=== PATIENT | male | born 1960 | race Caucasian/White ===

== ENCOUNTER → 2018-08-22 | Outpatient (CLI) | payer BC ==
--- NOTE | 2018-08-22 08:39 | US ---
EXAMINATION TYPE: US prostate transrectal DATE OF EXAM: 08/22/2018 COMPARISON: NONE CLINICAL HISTORY: R97.20 Elevated PSA. This examination was performed using the transrectal probe. EXAM MEASUREMENTS: Gland Size: 5.3 x 4. x 5.3 cm Volume: 60.7 ml Predicted PSA: 7.3 Actual PSA (if available):2.7 diffusely heterogenous gland with no definitive lesion identified. ? prostatitis vs lesion IMPRESSION: 1. Diffusely heterogenous gland may be related to prostatitis. Underlying neoplasm not excluded. Cons ider short-term follow-up and serial PSA and/or biopsy. Predicted PSA = volume x 0.12 ng/ml Calculated Volume = 0.5236 x L x W x H
== END | disposition home or self-care (01) ==
LOC: RADUSMAIN 07:39
PROVIDERS: ATTEND Family Medicine
DX: R93.89 Abnormal findings on diagnostic imaging of other specified body structures (principal); R97.20 Elevated prostate specific antigen [PSA]
CPT/HCPCS: 76872

== ENCOUNTER → 2019-11-01 | Outpatient (CLI) | payer BC ==
[2019-11-01 16:27] VITALS: BP 165/91; PULSE 75; RESP 16; TEMP 98.2; BMI 39.3
--- NOTE | 2019-11-01 16:46 | P.HPBAR ---
Bariatric H&P - History & Physicial H&P Date: 11/01/19 History & Physicial: Visit/CC: Initial Visit Patient initial contact: Initial weight: 109.769 kg Initial weight in pounds: 242.00 Height: 5 ft 5.75 in Initial BMI: 39.3 Last weight: Current weight: 109.769 kg Current weight in pounds: 242.00 Current BMI: 39.3 [place] body weight (based on NIH guidelines): 63.73 kg Excess body weight loss: 0.0% The patient is a 59 year-old M who presents for Bariatric Assessment. First visit. He is looking into the gastric bypass. Highest weight is 251 pounds. He has done medical supervised. Has brother had duodenal switch and had lost weight and his . He reports mother with severe obesity. His grandfather on mother side with obesity. He has dieted with all with very little success and cannot resist food. He reports eating until he is stuffed. He has depression. [facility]. All risks Past Medical History Past Medical History: Hyperlipidemia History of Any Multi-Drug Resistant Organisms: None Reported Year Discovered:: left hand/finger MDRO Source:: 2014 Past Surgical History: Appendectomy, Hernia Repair Past Psychological History: Depression Smoking Status: Former smoker Past Alcohol Use History: None Reported Past Drug Use History: None Reported Surgical - Exam Vital Signs Temp Pulse Resp BP 98.2 F 75 16 165/91 11/01/19 16:21 11/01/19 16:21 11/01/19 16:21 11/01/19 16:21 Bariatric Checklist Checklist: Plan: Checklist: EGD: 1. Hiatal hernia: 2. H. Pylori: HgbA1c: Vitamin D: Smoking: Former smoker Primary care physician referral: Psychiatry clearance: Cardiology clearance: Sleep study: Diet journal: VTE risk score: VTE risk level: Rehab needs at discharge:
== END | disposition home or self-care (01) ==
LOC: BARWHC3 15:28
PROVIDERS: ATTEND Surgery Plastic and Reconstructive Surgery
DX: E66.9 Obesity, unspecified (principal); F32.9 Major depressive disorder, single episode, unspecified; Z68.39 Body mass index [BMI] 39.0-39.9, adult
CPT/HCPCS: 99201

== ENCOUNTER 2020-02-21 07:28 | Day surgery (SDC) | payer BC ==
[2020-01-25 14:24] VITALS: BMI 37.4
[~2020-02-21 07:28] MED LIST: LACTATED RINGERS 1,000 ML IV SCH; LIDOCAINE 1% (10MG/ML) FOR IV START INTRADERMA PRN
[2020-02-21 07:44] VITALS: TEMP 97.4
[2020-02-21] MEDS ORDERED: PROPOFOL 10 MG/ML 20 ML VIAL IV ONE (08:02)
--- NOTE | 2020-02-21 08:16 | P.GSHP ---
History of Present Illness H&P Date: 02/21/20 CHIEF COMPLAINT: GERD HISTORY OF PRESENT ILLNESS: The patient is a 59 year-old male who presents reports gastroesophageal reflux disease. Upper endoscopy was offered for further evaluation and management. PAST MEDICAL HISTORY: Please see list. PAST SURGICAL HISTORY: Please see list. MEDICATIONS: Please see list. ALLERGIES: Please see list. SOCIAL HISTORY: No illicit drug use FAMILY HISTORY: No reports of Crohn disease or ulcerative colitis. REVIEW OF ORGAN SYSTEMS: CONSTITUTIONAL: No reports of fevers or chills. GI: Denies any blood in stools or constipation. PHYSICAL EXAM: VITAL SIGNS: Stable GENERAL: Well-developed and pleasant in no acute distress. HEENT: No scleral icterus. Extraocular movements grossly intact. Moist buccal mucosa. NECK: Supple without lymphadenopathy. CHEST: Unlabored respirations. Equal bilateral excursions. CARDIOVASCULAR: Regular rate and rhythm. Distal 2+ pulses. ABDOMEN: Soft, nondistended. MUSCULOSKELETAL: No clubbing, cyanosis, or edema. ASSESSMENT: 1. Gastroesophageal reflux disease PLAN: 1. Recommend proceeding with an upper endoscopy Past Medical History Past Medical History: Hyperlipidemia, Prostate Disorder Additional Past Medical History / Comment(s): pt states takes saxenda to suppress appetite History of Any Multi-Drug Resistant Organisms: None Reported Date of last positivie culture/infection: left hand/finger MDRO Source:: 2014 Past Surgical History: Appendectomy, Hernia Repair Past Anesthesia/Blood Transfusion Reactions: No Reported Reaction Smoking Status: Never smoker Medications and Allergies Home Medications Medication Instructions Recorded Confirmed Type Atorvastatin [Lipitor] 80 mg PO HS 12/22/14 02/21/20 History Venlafaxine HCl [Effexor] 37.5 mg PO QAM 12/22/14 02/21/20 History Cholecalciferol (Vitamin D3) 10,000 unit PO DAILY 11/02/19 02/21/20 History [Vitamin D3] Multivit-Min/FA/Lycopen/Lutein 1 tab PO DAILY 11/02/19 02/19/20 History [Centrum Silver Men Tablet] buPROPion HCL [Wellbutrin SR] 150 mg PO QAM 11/02/19 02/21/20 History Glucosamine Sulfate 500 mg PO DAILY 01/25/20 02/21/20 History Ibuprofen [Motrin] 600 mg PO Q8HR PRN 01/25/20 02/21/20 History Liraglutide [Saxenda] 1.8 ml SQ DAILY 01/25/20 02/19/20 History Tamsulosin [Flomax] 0.4 mg PO QAM 02/19/20 02/21/20 History Allergies Allergy/AdvReac Type Severity Reaction Status Date / Time No Known Allergies Allergy Verified 02/21/20 07:44 Surgical - Exam Vital Signs Temp Pulse Resp BP Pulse Ox 97.4 F L 70 16 145/90 98 02/21/20 07:42 02/21/20 07:42 02/21/20 07:42 02/21/20 07:42 02/21/20 07:42
--- NOTE | 2020-02-21 08:22 | P.PCN ---
Date of Procedure: 02/21/20 Description of Procedure: PREOPERATIVE DIAGNOSIS: Gastroesophageal reflux disease. Morbid obesity. POSTOPERATIVE DIAGNOSIS: Morbid obesity. Gastritis. Duodenitis Gastroesophageal reflux disease. Diaphragmatic hiatal hernia OPERATION: Esophagogastroduodenoscopy with biopsies along antrum. SURGEON: Michell Rolle MD ANESTHESIA: MAC. INDICATIONS: The patient is a 59-year-old male who presents with a history of reflux disease. Benefits and risks of the procedure were described. Informed consent was obtained. DESCRIPTION: The patient was brought into the endoscopy suite and laid in the left lateral decubitus position. An Olympus gastroscope was passed along the posterior oropharynx down to the distal esophagus where the squamocolumnar junction was encountered at 39 cm from the incisors. The stomach was entered and no bile reflux was found. Additional findings are listed below. Biopsies with cold forceps were obtained of the antrum. The first through third portion of the duodenum was examined and remarkable for duodenitis. Retroflexion of the scope confirmed Hill grade 2 lower esophageal valve. The squamocolumnar junction demonstrated LA grade B erosive esophagitis. The stomach was desufflated. The patient tolerated the procedure well. FINDINGS: Squamocolumnar junction 39 cm from the incisors. Diaphragmatic hiatus at 40 cm. Hiatal hernia, 1 cm Hill grade 2 lower esophageal valve. LA grade B erosive esophagitis. Active duodenitis. Chronic gastritis RECOMMENDATIONS: Upper endoscopy as needed. Plan - Discharge Summary Discharge Rx Participant: No New Discharge Prescriptions: Continue Venlafaxine HCl [Effexor] 37.5 mg PO QAM Atorvastatin [Lipitor] 80 mg PO HS buPROPion HCL [Wellbutrin SR] 150 mg PO QAM Cholecalciferol (Vitamin D3) [Vitamin D3] 10,000 unit PO DAILY Multivit-Min/FA/Lycopen/Lutein [Centrum Silver Men Tablet] 1 tab PO DAILY Liraglutide [Saxenda] 1.8 ml SQ DAILY Glucosamine Sulfate 500 mg PO DAILY Tamsulosin [Flomax] 0.4 mg PO QAM Discontinued Ibuprofen [Motrin] 600 mg PO Q8HR PRN PRN Reason: Pain Discharge Medication List Atorvastatin [Lipitor] 80 mg PO HS 12/22/14 [History] Venlafaxine HCl [Effexor] 37.5 mg PO QAM 12/22/14 [History] Cholecalciferol (Vitamin D3) [Vitamin D3] 10,000 unit PO DAILY 11/02/19 [History] Multivit-Min/FA/Lycopen/Lutein [Centrum Silver Men Tablet] 1 tab PO DAILY 11/02/19 [History] buPROPion HCL [Wellbutrin SR] 150 mg PO QAM 11/02/19 [History] Glucosamine Sulfate 500 mg PO DAILY 01/25/20 [History] Liraglutide [Saxenda] 1.8 ml SQ DAILY 01/25/20 [History] Tamsulosin [Flomax] 0.4 mg PO QAM 02/19/20 [History] [facility] up [facility]ment(s[facility]Ref[facility] [facility] [place] [place] [facility] [place] [facility] Patient Instructions/Handouts: Gastritis (DC), Duodenitis (DC), Diet for Stomach Ulcers and Gastritis (ED), Hiatal Hernia (ED) Discharge Disposition: HOME SELF-CARE
[2020-02-21 08:38] VITALS: BP 129/82; PULSE 84; RESP 20
== END 2020-02-21 09:02 | disposition home or self-care (01) ==
LOC: ORWHC2ENDO 07:28
PROVIDERS: ATTEND Surgery Plastic and Reconstructive Surgery
DX: K22.10 Ulcer of esophagus without bleeding (principal); B96.81 Helicobacter pylori [H. pylori] as the cause of diseases classified elsewhere; K29.50 Unspecified chronic gastritis without bleeding; K44.9 Diaphragmatic hernia without obstruction or gangrene; K29.80 Duodenitis without bleeding; K21.9 Gastro-esophageal reflux disease without esophagitis; E78.5 Hyperlipidemia, unspecified; F32.9 Major depressive disorder, single episode, unspecified; N40.0 Benign prostatic hyperplasia without lower urinary tract symptoms; Z79.899 Other long term (current) drug therapy
CPT/HCPCS: 43239; 88305; 88342; J2704

== ENCOUNTER → 2020-05-22 | Outpatient (CLI) | payer BC ==
[2020-05-22 13:29] LABS: HCT 44.8 % (39.0-53.0); HGB 15.8 gm/dL (13.0-17.5); MCH 30.9 pg (25.0-35.0); MCHC 35.4 g/dL (31.0-37.0); MCV 87.5 fL (80.0-100.0); Mean Platelet Volume 6.3; Platelet Count 219 k/uL (150-450); RBC 5.12 m/uL (4.30-5.90); RDW 12.8 % (11.5-15.5); WBC 7.2 k/uL (3.8-10.6)
[2020-05-22 21:43] LABS: INR 0.96 (0.90-1.11); Partial Thromboplastin Time 28.7 sec (23.5-31.0); Prothrombin Time 10.4 sec (9.9-11.9)
[2020-05-22 22:48] LABS: % Iron Saturation 26.58 (15.00-50.00); African American GFR (CKD) 84.7 (60.0-200.0); Albumin 4.9 g/dL (3.80-4.90); Albumin/Globulin Ratio 2.45 (1.60-3.17); Anion Gap 11.4 mmol/L (4.00-12.00); BUN/Creat Ratio 22.73 Ratio (12.00-20.00); Carbon Dioxide 23.6 mmol/L (21.6-31.8); Chol/HDL Ratio 3.31; LDL Cholesterol,Calculated 78.2 mg/dL (0.0-131.0); Non-African American GFR(CKD) 73.1 (60.0-200.0); Phosphorus 3.1 mg/dL (2.4-5.1); Potassium 3.9 mmol/L (3.5-5.5); Total Bilirubin 0.8 mg/dL (0.3-1.2); Total Protein 6.9 g/dL (6.2-8.2); VLDL Calculation 18.8 mg/dL (5.00-40.00)
[2020-05-22 22:56] LABS: Ferritin 129.3 ng/mL (22.0-322.0)
[2020-05-22 23:56] LABS: Folate, Serum 19.5 ng/mL
[2020-05-24 06:13] LABS: Zinc, Serum 71 ug/dL (60-130)
[2020-05-24 08:24] LABS: Vit B1(Thiamine) 92 ug/L (38-122)
[2020-05-27 07:47] LABS: Vitamin A 87 ug/dL (38-106)
[2020-05-27 18:06] LABS: Selenium 115 mcg/L (63-160)
== END | disposition home or self-care (01) ==
LOC: LABWHC1 11:47
PROVIDERS: ATTEND Surgery Plastic and Reconstructive Surgery
DX: E21.1 Secondary hyperparathyroidism, not elsewhere classified (principal); E89.1 Postprocedural hypoinsulinemia; E55.9 Vitamin D deficiency, unspecified; E44.0 Moderate protein-calorie malnutrition; E66.01 Morbid (severe) obesity due to excess calories; D50.9 Iron deficiency anemia, unspecified; N19 Unspecified kidney failure; K74.1 Hepatic sclerosis; K50.90 Crohn's disease, unspecified, without complications
CPT/HCPCS: 36415; 80053; 80061; 82306; 82525; 82607; 82728; 82746; 83036; 83540; 83550; 83735; 83970; 84100; 84134; 84255; 84425; 84443; 84590; 84630; 85027; 85610; 85730; 93005

== ENCOUNTER → 2020-07-01 | Outpatient (CLI) | payer BC ==
[2020-07-01 09:52] VITALS: BMI 38.4
== END ==
LOC: BARWHC3 08:51
PROVIDERS: ATTEND Surgery Plastic and Reconstructive Surgery
DX: Z71.3 Dietary counseling and surveillance (principal); E66.01 Morbid (severe) obesity due to excess calories; Z87.891 Personal history of nicotine dependence
CPT/HCPCS: 97804

== ENCOUNTER → 2020-07-31 | Outpatient (CLI) | payer BC ==
[2020-07-31 16:16] VITALS: BP 137/85; PULSE 73; RESP 18; TEMP 98.1; BMI 38.8
--- NOTE | 2020-07-31 16:41 | P.PN ---
Subjective Progress Note Date: 07/31/20 Consent reviewed. Agree with bypass. Has COVID vaccine. US for elevated liver enzymes. Objective - Vital Signs Vital signs: Vital Signs Temp 98.1 F 07/31/20 16:12 Pulse 73 07/31/20 16:12 Resp 18 07/31/20 16:12 BP 137/85 07/31/20 16:12 Pulse Ox Intake & Output 07/30/20 07/31/20 07/31/20 18:59 06:59 18:59 Weight 108.272 kg
== END ==
LOC: BARWHC3 15:32
PROVIDERS: ATTEND Surgery Plastic and Reconstructive Surgery
DX: E66.01 Morbid (severe) obesity due to excess calories (principal); Z68.38 Body mass index [BMI] 38.0-38.9, adult; E78.5 Hyperlipidemia, unspecified; F32.9 Major depressive disorder, single episode, unspecified
CPT/HCPCS: 99211

== ENCOUNTER → 2020-08-08 | Outpatient (CLI) | payer BC ==
--- NOTE | 2020-08-08 10:37 | US ---
EXAMINATION TYPE: US gallbladder DATE OF EXAM: 08/08/2020 COMPARISON: NONE CLINICAL HISTORY: R94.5 abnormal liver function. Abnormal liver function test EXAM MEASUREMENTS: Liver Length: 16.4 cm Gallbladder Wall: .3 cm CBD: .5 cm Right Kidney: 10.6 x 4.8 x 4.2 cm Pancreas: Obscured by bowel gas Liver: Increased attenuation Gallbladder: No stones seen Evidence for sonographic Aguilar's sign: No CBD: wnl Right Kidney: wnl IMPRESSION: 1. Hepatic steatosis.
== END | disposition home or self-care (01) ==
LOC: RADUSWWP 09:46
PROVIDERS: ATTEND Surgery Plastic and Reconstructive Surgery
DX: K76.0 Fatty (change of) liver, not elsewhere classified (principal)
CPT/HCPCS: 76705

== ENCOUNTER → 2020-08-26 | Outpatient (CLI) | payer BC ==
[2020-08-26 13:48] LABS: Basophils % (A) 1 %; Eosinophils # (A) 0.3 k/uL (0-0.7); Eosinophils % (A) 4 %; HCT 46.3 % (39.0-53.0); HGB 16.4 gm/dL (13.0-17.5); Lymphocytes % (A) 27 %; MCHC 35.4 g/dL (31.0-37.0); MCV 87.6 fL (80.0-100.0); Mean Platelet Volume 6.3; Monocytes # (A) 0.5 k/uL (0-1.0); Monocytes % (A) 7 %; Neutrophils # (A) 4.3 k/uL (1.3-7.7); Neutrophils % (A) 60 %; Platelet Count 255 k/uL (150-450); RBC 5.28 m/uL (4.30-5.90); RDW 12.2 % (11.5-15.5); WBC 7.3 k/uL (3.8-10.6)
[2020-08-26 14:14] LABS: ALT 34 U/L (4-49); AST 32 U/L (17-59); African American GFR (CKD) >90 (>60 ml/min/1.73 sqM); Albumin 4.7 g/dL (3.5-5.0); Alkaline Phosphatase 99 U/L (38-126); Anion Gap 5 mmol/L; Blood Urea Nitrogen 21 mg/dL (9-20); Calcium 9.9 mg/dL (8.4-10.2); Carbon Dioxide 30 mmol/L (22-30); Chloride 104 mmol/L (98-107); Glucose 81 mg/dL (74-99); Non-African American GFR(CKD) 86 (>60 ml/min/1.73 sqM); Potassium 4.8 mmol/L (3.5-5.1); Sodium 139 mmol/L (137-145); Total Bilirubin 0.9 mg/dL (0.2-1.3); Total Protein 7.7 g/dL (6.3-8.2)
== END | disposition home or self-care (01) ==
LOC: LABPAT 11:46
PROVIDERS: ATTEND Surgery Plastic and Reconstructive Surgery
DX: Z01.818 Encounter for other preprocedural examination (principal)
CPT/HCPCS: 36415; 80053; 85025

== ENCOUNTER 2020-09-02 10:55 | Inpatient (IN) | payer BC ==
--- NOTE | 2020-09-02 08:28 | P.GSHP ---
History of Present Illness H&P Date: 09/02/20 DATE OF SERVICE: 09/02/2020 CHIEF COMPLAINT: Morbid obesity due to excess calories HISTORY OF PRESENT ILLNESS: Yoel Sales is a 60-year-old male who comes with lifelong morbid obesity. He comes in looking into the gastric bypass. His highest weight is 251 pounds. He has done medical supervised weight loss. He has a family history of morbid obesity with his brother had the duodenal switch and had lost weight and his . He reports his mother has severe obesity. His grandfather on his mother side has obesity. He has dieted with little success and cannot resist food. He reports eating until he is stuffed. He has depression. As a result of obesity, he has diabetes type II. He has completed bariatric assessment including cardiac risk assessment, psych assessment, dietary counseling prior to his surgery. At height of 5 feet 5.75 inches, his ideal body weight is 149 pounds. He comes in 241 pounds. His body mass index is 39.4. He is 92 pounds overweight. PAST MEDICAL HISTORY: 1. Morbid obesity due to excess calories 2. Body mass index of 39.4, initial 3. Depressive disorder 4. Hyperlipidemia 5. Diabetes type II PAST SURGICAL HISTORY: 1. Hernia repair 2. Appendectomy HOME MEDICATIONS: Home Medications Medication Instructions Recorded Confirmed Atorvastatin [Lipitor] 80 mg PO HS 12/22/14 02/21/20 Venlafaxine HCl [Effexor] 37.5 mg PO QAM 12/22/14 02/21/20 Cholecalciferol (Vitamin D3) 10,000 unit PO DAILY 11/02/19 02/21/20 [Vitamin D3] Multivit-Min/FA/Lycopen/Lutein 1 tab PO DAILY 11/02/19 02/19/20 [Centrum Silver Men Tablet] buPROPion HCL [Wellbutrin SR] 150 mg PO QAM 11/02/19 02/21/20 Glucosamine Sulfate 500 mg PO DAILY 01/25/20 02/21/20 Liraglutide [Saxenda] 1.8 ml SQ DAILY 01/25/20 02/19/20 Tamsulosin [Flomax] 0.4 mg PO QAM 02/19/20 02/21/20 ALLERGIES: Allergies Allergy/AdvReac Type Severity Reaction Status Date / Time No Known Allergies Allergy Verified 02/21/20 07:44 SOCIAL HISTORY: Past tobacco use. FAMILY HISTORY: No family history of ulcerative colitis disease or Crohn's disease. Family history of morbid obesity. No lupus in the family. No reports of stomach or esophageal cancer. REVIEW OF ORGAN SYSTEMS: CONSTITUTIONAL: At height of 5 feet 5.75 inches, his ideal body weight is 149 pounds. He comes in 241 pounds. His body mass index is 39.4. He is 92 pounds overweight. HEENT: Denies any active troubles with vision or hearing. ENDOCRINE: Has diabetes. No hypothyroidism. CARDIOVASCULAR: Past reports of palpitations or heart attacks or chest pain. Has hyperlipidemia RESPIRATORY: Has daytime somnolence. Denies asthma. GASTROINTESTINAL: Denies any bright red blood per rectum. No diarrhea. No constipation. MUSCULOSKELETAL: Has lower back pain and joint pain. Has osteoarthritis of the knees. NEURO: No headaches. No seizure disorders. PSYCH: Has depression. No suicidal ideation. RHEUMATOLOGIC: No lupus. No rheumatoid arthritis. HEMATOLOGIC: Denies any abnormal bleeding or bruising. No personal history of DVTs. SKIN: No rash. No skin cancer. PHYSICAL EXAM: VITAL SIGNS: Height 5 foot 5.75 inches, weight 241 pounds. BMI 39.4 GENERAL: Well-developed in no acute distress. HEENT: No scleral icterus. Extraocular movements grossly intact. Hears con versational speech. No nasal drainage. NECK: Supple without lymphadenopathy. CHEST: Nonlabored respirations with equal bilateral excursions. CARDIOVASCULAR: Regular rate and regular rhythm. Distal 2+ pulses. ABDOMEN: Obese, soft, nontender, nondistended. MUSCULOSKELETAL: No clubbing, cyanosis. NEURO: No focal or lateralizing signs. Cranial nerves 2 through 12 grossly within normal limits. PSYCH: Appropriate affect. Alert and oriented to person, place and time. SKIN: Good skin turgor. Well perfused. ASSESSMENT: 1. Morbid obesity due to excess calories 2. Body mass index of 39.4, initial 3. Depressive disorder 4. Hyperlipidemia 5. Diabetes type II PLAN: 1. Bariatric options between a sleeve, band and a [place]-en-Y gastric bypass were reviewed in detail. The patient elected for a gastric bypass. Robotic assisted approach described. 2. The [place] [facility] Data was also reviewed with benefits and risks as described. 3. An 8 page second-generation bariatric consent form was reviewed in detail including potential of bleeding, infection, leaks, adequate weight loss, nutritional deficiencies which the patient demonstrated understanding of the risks. 4. A 2 week high-protein low caloric 800 kcal diet described to address hepatomegaly. 5. Preoperative labs including complete metabolic panel and CBC with type and screen recommended. 6. DVT prophylaxis per [place] [facility]. 7. Antibiotic prophylaxis. 8. Inpatient hospitalization anticipated for more than 2 nights. 9. All questions and concerns were addressed with the patient. 10. Overall, patient has expressed understanding of bariatric care including postoperative diet and commitment of lifestyle. Patient should benefit from surgical intervention for correction of her morbid obesity. Past Medical History Past Medical History: Hyperlipidemia, Prostate Disorder, Sleep Apnea/CPAP/BIPAP Additional Past Medical History / Comment(s): Pt states takes saxenda to suppress appetite. Hx elev PSA. Uses CPAP. Covid vaccine #2 on 08/16/20. History of Any Multi-Drug Resistant Organisms: None Reported Date of last positivie culture/infection: left hand/finger MDRO Source:: 2014 Past Surgical History: Appendectomy, Hernia Repair Additional Past Surgical History / Comment(s): Colonoscopy, EGD. Past Anesthesia/Blood Transfusion Reactions: No Reported Reaction Smoking Status: Never smoker - Past Family History Mother Family Medical History: No Reported History Medications and Allergies Home Medications Medication Instructions Recorded Confirmed Type Atorvastatin [Lipitor] 80 mg PO HS 12/22/14 08/29/20 History Venlafaxine HCl [Effexor] 37.5 mg PO QAM 12/22/14 08/29/20 History Cholecalciferol (Vitamin D3) 250 mcg PO DAILY 11/02/19 08/29/20 History [Vitamin D3] Multivit-Min/FA/Lycopen/Lutein 1 tab PO DAILY 11/02/19 08/29/20 History [Centrum Silver Men Tablet] buPROPion HCL [Wellbutrin SR] 150 mg PO QAM 11/02/19 08/29/20 History Liraglutide [Saxenda] 3 ml SQ DAILY 01/25/20 08/29/20 History Tamsulosin [Flomax] 0.4 mg PO QAM 02/19/20 08/29/20 History Omeprazole 20 mg PO BID 05/31/20 08/29/20 History Allergies Allergy/AdvReac Type Severity Reaction Status Date / Time No Known Allergies Allergy Verified 08/29/20 12:51
[~2020-09-02 10:55] MED LIST changes: +ACETAMINOPHEN TAB 500 MG TAB PO PRN; +CHLORHEXIDINE GLUCONATE 15 ML CUP MUCOUS MEM PRN; +DEXAMETHASONE SOD PHOSPHATE 4 MG/ML 1 ML VIAL IV ONE; +ENOXAPARIN 40 MG/0.4 ML SYRINGE SQ PRN; +GABAPENTIN 300 MG CAP PO PRN; -LACTATED RINGERS 1,000 ML IV SCH; +MELOXICAM 7.5 MG TAB PO PRN; +ONDANSETRON 4 MG/2 ML VIAL IVP ONE; +PANTOPRAZOLE 40 MG/10 ML VIAL IVP PRN; +SCOPOLAMINE 1.5MG/72HR PATCH TRANSDERM PRN; +TAMSULOSIN 0.4 MG CAP.ER.24H PO PRN
[2020-09-02] MEDS: LACTATED RINGERS 1,000 ML IV SCH ×3 (13:11→19:45)
[2020-09-02] MEDS ORDERED: MIDAZOLAM 2 MG/2 ML VIAL IV ONE (13:20)
[2020-09-02] MEDS ORDERED: ROCURONIUM 10 MG/ML (5 ML VIAL) IV ONE (14:35)
[2020-09-02] MEDS ORDERED: LIDOCAINE 1%-EPI 1:100,000 20 ML VIAL ONE (14:35)
[2020-09-02] MEDS ORDERED: GLYCOPYRROLATE 0.2 MG/ML 2 ML VIAL ONE (14:35)
[2020-09-02] MEDS ORDERED: ROPIVACAINE 5 MG/ML 30 ML VIAL ONE (14:35)
[2020-09-02] MEDS ORDERED: fentaNYL (PF) 50 MCG/ML 2 ML AMP ONE (14:35)
[2020-09-02] MEDS ORDERED: PROPOFOL 10 MG/ML 20 ML VIAL IV ONE (14:35)
[2020-09-02] MEDS ORDERED: SUCCINYLCHOLINE CHLORIDE 100 MG/5 ML SYR IV ONE (14:35)
[2020-09-02] MEDS ORDERED: LIDOCAINE 1% INJ 10MG/ML (20 ML MDV) ONE (14:35)
[2020-09-02] MEDS ORDERED: MIDAZOLAM 2 MG/2 ML VIAL ONE (14:35)
[2020-09-02] MEDS ORDERED: BUPIVACAINE-EPI 0.5%-1:200,000 10 ML VIAL SQ ONE (15:05)
[2020-09-02] MEDS ORDERED: LACTATED RINGERS 1,000 ML IV ONE (15:42)
[2020-09-02] MEDS ORDERED: HYDROmorphone 1 MG/ML 1 ML SYRINGE IVP ONE ×2 (17:50→18:26)
[2020-09-02] MEDS ORDERED: NALOXONE 0.4 MG/ML 1 ML VIAL IV PRN (17:52)
[2020-09-02] MEDS ORDERED: diphenhydrAMINE 50 MG/ML 1 ML VIAL IVP PRN (17:52)
[2020-09-02] MEDS ORDERED: HYOSCYAMINE ORAL DROPS 1.875 MG/15 ML BOTTLE PO SCH (18:00)
--- NOTE | 2020-09-02 18:05 | P.OP ---
Date of Procedure: 09/02/20 Description of Procedure: SURGEON: JOVANY MAN MD PREOPERATIVE DIAGNOSES: 1. Morbid obesity due to excess calories 2. Body mass index of 39.4, initial 3. Depressive disorder 4. Hyperlipidemia 5. Diabetes type II [id number] 6. Obstructive sleep apnea 7. Obstructive uropathy due to prostate disorder POSTOPERATIVE DIAGNOSES: 1. Morbid obesity due to excess calories 2. Body mass index of 39.4, initial 3. Depressive disorder 4. Hyperlipidemia 5. Diabetes type II [id number]-rqydcsjys 6. Obstructive sleep apnea 7. Obstructive uropathy due to prostate disorder 8. Bilateral inguinal hernia OPERATION: 1. Robotic assisted da Sariah Xi laparoscopic Alla-en-Y gastric bypass, 100 cm antecolic antegastric Alla limb, with 25 mm EEA. 2. Intraoperative esophagogastrojejunoscopy. ANESTHESIA: GETA and local ESTIMATED BLOOD LOSS: 10 mL SPECIMENS REMOVED: None. COMPLICATIONS: NONE. Operative Findings: 1. Biliopancreatic limb 60 cm 2. Bypass performed using 100 cm alla limb secondary to avoid increased tension at 150 cm. 3. Corbin defect and jejunojejunostomy defect closed with 2-0 V LOC 4. Leak test negative with gastrojejunal anastomosis patent and hemostatic. 5. Reinforcement sutures were placed along the gastrojejunal anastomosis 6. Liver within normal limits 7. Bilateral indirect inguinal hernias, small INDICATIONS: Yoel Sales is a 60-year-old male who comes with lifelong morbid obesity. He comes in looking into the gastric bypass. His highest weight is 251 pounds. He has done medical supervised weight loss. As a result of obesity, he has diabetes type II including obstructive sleep apnea. He has completed bariatric assessment including cardiac risk assessment, psych assessment, dietary counseling prior to his surgery. At height of 5 feet 5.75 inches, his ideal body weight is 149 pounds. He comes in 241 pounds to 229 pounds. His body mass index was 39.4. A second-generation bariatric consent form was described in detail including the possibility of protein malnutrition, leaks, gastrojejunal stricture, venous th rombosis, need for further surgery for which she demonstrated understanding. Benefits and risks of the procedure were described at length. Informed consent was obtained. DESCRIPTION: The patient was brought into the operating room theater. He was placed supine. He had received Lovenox subcutaneously for DVT prophylaxis. Additionally he Peridex oral solution as an oral decontaminant was placed per anesthesia. After general induction, the abdomen was prepped and draped in standard sterile fashion. Ioban draping was placed along the abdomen. A robotic da Sariah Xi system was prepped and primed. The xiphoid to umbilicus was measured of 16 cm. Incisions were proposed at 15 cm from the xiphoid. Proposed port sites were marked with indelible marker along the anterior axillary line bilaterally, mid clavicular line bilaterally with each port marked 10 cm from each other. The robotic stapler port was marked for the right midclavicular line including along the left midclavicular line. A protuberance along the mid abdomen at the epigastrium was identified suspicious for ventral hernia. As a result, a 5 mm 0 laparoscopic trocar entry was performed along the left upper quadrant. The abdomen was insufflated to 15 mmHg pressure, which he tolerated well. Diagnostic laparoscopy demonstrated no injury to bowel, viscera, or mesentery. Small bilateral indirect inguinal hernias were identified. The liver edge was within normal limits. Diagnostic laparoscopy confirmed a moderately dilated stomach. No hernias were identified. I went to the head of the bed to suction the entire stomach and deflate the stomach. The 5 mm trocar remained intact. An 8 mm camera port was placed left lateral to the umbilicus at the epigastrium, 15 cm distal to the xiphoid. Next, 12-mm robot stapler port was placed along the right mid abdomen. An 12 mm port was placed along the left upper quadrant. An 8 mm port was placed on the left lateral abdominal wall under direct visualization Please note that the ports were placed 18 to 20 cm away from the target anatomy of the stomach. Care was taken to check that each robotic arm was safely away from collision with the bed or the patient. At the epigastrium, a medium sized Zoya liver retractor was placed under direct visualization with the [employer]or placed under the right shoulder of the patient. The patient was repositioned in reverse Trendelenburg position at 21-degrees after lowering the bed. The robot was docked over the patient. Using grasper for arm 3, a grasper for arm 1, including vessel sealer for arm 4, the robotic system was docked and primed as described. Instruments were interchanged by the social services assistant including endoscissors, the needle cat driver, and stapler. I had sat at the console. Next, the transverse mesocolon was reflected into the upper abdomen after dividing the mesentery and preparing for the jejunojejunostomy portion of the case. The ligament of Treitz was identified and measured 60 cm antegrade and marked using 3-0 Silk. The jejunum was divided at the 60 cm point using 60-mm blue loads above the suture measurement. The biliopancreatic limb was held in place. The Alla limb was measured 100 cm in an antegrade fashion to avoid tension along the proposed gastrojejunal anastomosis. At 100 cm along the anti-mesenteric border of the Alla limb, a jejunojejunostomy was proposed whereby enterotomies were created along the biliopancreatic limb including the Alla limb using a Bovie cautery. A stay suture of 3-0 Slik was placed to align and create the anastomosis. The enterotomies along the anti-mesenteric borders were created followed by unidirectional fire from the patient's right side using 60 mm blue load Smart technology robotic stapler. The jejunojejunostomy was found to be hemos tatic. The enterotomy was closed after horizontal mattress stitch of 3-0 silk used to elevate the enterotomy followed by closure with the robotic stapler blue load. The jejunal limb was temporarily tacked along the left upper quadrant. Attention was now brought to the creation of the gastrojejunostomy. Along the lesser curvature of the stomach between the second and third veins, dissection was made along the retrogastric space to allow first firing of the robotic staple. Blue loads of 60 mm staplers were used to divide the stomach to create the gastric pouch. The patient was then prepared for placement of a Orvil. The patient was Mallampati 2. A 25-mm Orvil was selected for placement by the nurse operating room tech. The Orvil tubing was placed posterior to the staple line of the gastric pouch and brought out through the left inferior lateral port. I re-scrubbed into the case. The robotic arms were temporarily undocked. The Orvil was then carefully and successfully navigated with the help of the nurse operating room tech into the gastric pouch. The sutures were identified and divided. The tubing was from the 25 mm anvil. As the Orvil had been placed, the blind jejunal limb was brought proximally into the upper abdomen. No torsion was found upon the Alla limb. No tension was identified as the limb was brought along the upper abdomen. The blind jejunal limb was previously opened using endo-scissors with cautery. The 25-mm EEA stapler was brought through the left anterior lateral port site from the left side. The EEA stapler was brought through the open jejunal limb and its needle was deployed at the antimesenteric border where the anvil were mated for approximately 1 minute upon firing. The stapler was removed after irrigating the shaft of the instrument with warm normal saline. Donuts were found to be intact and on both sides. The [employer] Xi robot arms were then re-docked. I sat at the console. The open jejunal limb defect was closed using 60 mm blue loads after releasing any tension from the blind jejunal limb. Care was taken to avoid any long blind limb to avoid candycane syndrome. Reinforcement sutures were placed along the gastrojejunal anastomosis and placed along the 12:00, 6:00, 9:00 and 3 o'clock position using 3-0 Polysorb. The Hammer and jejunojejunostomy mesenteric defects were closed using 2-0 VLOC. I then went to the head of the bed to perform the esophagogastrojejunoscopy and a leak test. An Olympus gastroscope was passed along the posterior oropharynx which was unremarkable for any injury to the vocal cords. The scope was passed down to the proximal portion of the pouch, whereby no active bleeding was encountered. Excellent visualization of the gastrojejunostomy anastomosis, including the Alla limb was encountered with endoscopic image obtained. The anastomosis was found to be patent. The gastrointestinal tract was desufflated. No evidence of intraoperative leak was encountered as the gastric pouch and anastomosis were submerged under normal saline solution. The robot was then undocked. I then went back to the bedside of the patient, whereby with coordinated effort of the social services assistant, irrigation was aspirated from the upper abdominal cavity. Tisseel was placed circumferentially over the anastomosis of the gastrojejunostomy. The fascial defect of the EEA stapler was closed using Yobani Ross and 0 Vicryl. All instruments and pneumoperitoneum were evacuated from the abdominal cavity. The port correlating with the EEA stapler device was cleansed with normal saline solution and hydrogen peroxide. The rest of incisions were reapproximated using 4-0 Monocryl in an interrupted subcuticular fashion. Local anesthetic was infiltrated along the skin for postop analgesia. Liquid glue was applied to the skin. OptiFoam dressing was placed along the EEA stapler site. At the end of the procedure, needle, sponge and instrument count had been verified correct by the surgical physician assistant. He had tolerated the procedure well and was extubated and taken to the postanesthesia unit in stable condition. Intraoperative findings were described to the patient's family who were very pleased with the level of care.
[2020-09-02] MEDS: SIMETHICONE 40 MG/0.6 ML DROPS 2,000 MG/30 ML BOTTLE PO SCH (20:12)
[2020-09-02] MEDS: ACETAMINOPHEN IV (For NPO) 1,000 MG in EMPTY BAG 1 BAG IVPB SCH (20:12)
[2020-09-02] MEDS: ALBUTEROL NEBULIZED 2.5 MG/3 ML INHALATION SCH (20:29)
[2020-09-02] MEDS: ONDANSETRON 4 MG/2 ML VIAL IVP SCH (20:30)
[2020-09-02] MEDS: HYDROmorphone 1 MG/ML 1 ML SYRINGE IVP PRN (21:35)
[2020-09-02] MEDS: 0.9% NACL WITH KCL 20 MEQ/L 1,000 ML IV SCH (21:36)
[2020-09-03] MEDS: ONDANSETRON 4 MG/2 ML VIAL IVP SCH ×5 (01:16→23:19)
[2020-09-03] MEDS: SIMETHICONE 40 MG/0.6 ML DROPS 2,000 MG/30 ML BOTTLE PO SCH ×5 (01:17→23:20)
[2020-09-03] MEDS: ACETAMINOPHEN IV (For NPO) 1,000 MG in EMPTY BAG 1 BAG IVPB SCH ×4 (02:07→18:07)
[2020-09-03] MEDS: HYDROmorphone 1 MG/ML 1 ML SYRINGE IVP PRN ×2 (04:17→14:45)
[2020-09-03] MEDS: 0.9% NACL WITH KCL 20 MEQ/L 1,000 ML IV SCH ×4 (04:38→20:28)
[2020-09-03] MEDS: ALBUTEROL NEBULIZED 2.5 MG/3 ML INHALATION SCH ×4 (07:20→20:11)
[2020-09-03] MEDS: buPROPion SR 150 MG TABLET.ER PO SCH (08:07)
[2020-09-03] MEDS: PANTOPRAZOLE 40 MG/10 ML VIAL IV SCH (08:07)
--- NOTE | 2020-09-03 08:08 | P.ANPRN ---
Procedure Note - Anesthesia - Nerve Block Performed Bilateral Erector Spinae Single Time Out Performed: Yes Date of Procedure: 09/02/20 Procedure Start Time: 13:19 Procedure Stop Time: 13:30 Location of Patient: PreOp Indication: Acute Post-Operative Pain, Requested by Surgeon Sedation Type: Sedate with meaningful contact maintained Preparation: Sterile Prep Position: Prone Needle Types: Pajunk Needle Gauge: 21 Ultrasound used to visualize needle placement: Yes Ultrasound used to observe medication spread: Yes Blood Aspirated: No Pain Paresthesia on Injection Noted: No Resistance on Injection: Normal Image Stored and Saved: Yes Events: Uneventful and Well Tolerated (ropi .5% 15cc plus xylo 1% with epi 15cc bilaterally at t10)
[2020-09-03] MEDS ORDERED: SODIUM CHLORIDE 0.9% 2,000 ML IV ONE ×2 (08:40→21:57)
[2020-09-03] MEDS ORDERED: ENOXAPARIN 30 MG/0.3 ML SYRINGE SQ SCH (09:00)
[2020-09-03 09:47] LABS: Basophils # (A) 0.02 X 10*3/uL (0.00-0.10); Basophils % (A) 0.1 %; Eosinophils # (A) 0 X 10*3/uL (0.04-0.35); Eosinophils % (A) 0 %; HCT 32.5 % (39.6-50.0); HGB 11.1 g/dL (13.0-17.0); Lymphocytes # (A) 1.29 X 10*3/uL (0.90-5.00); Lymphocytes % (A) 6.6 %; MCH 30.7 pg (27.0-32.0); MCHC 34.2 g/dL (32.0-37.0); MCV 89.8 fL (80.0-97.0); Mean Platelet Volume 9.4 fL (9.5-12.2); Monocytes # (A) 1.28 X 10*3/uL (0.20-1.00); Monocytes % (A) 6.6 %; Neutrophils # (A) 16.74 X 10*3/uL (1.80-7.70); Neutrophils % (A) 86.2 %; Platelet Count 264 X 10*3/uL (140-440); RBC 3.62 X 10*6/uL (4.40-5.60); RDW 12.4 % (11.5-14.5); WBC 19.43 X 10*3/uL (4.50-10.00)
[2020-09-03] MEDS: LIDOCAINE 5% PATCH TOPICAL SCH (11:11)
[2020-09-03 11:37] VITALS: BMI 37.3
[2020-09-03 12:36] LABS: African American GFR (CKD) 112.5 (60.0-200.0); Anion Gap 9.9 mmol/L (4.00-12.00); Calcium 8.4 mg/dL (8.7-10.3); Carbon Dioxide 18.1 mmol/L (21.6-31.8); Magnesium 1.7 mg/dL (1.5-2.4); Non-African American GFR(CKD) 97.1 (60.0-200.0); Phosphorus 3.8 mg/dL (2.4-5.1); Potassium 4.4 mmol/L (3.5-5.5)
--- NOTE | 2020-09-03 15:59 | P.PN ---
<Twila Mckay - Last Filed: 09/03/20 15:48> Subjective Progress Note Date: 09/03/20 CHIEF COMPLAINT: Morbid obesity HISTORY OF PRESENT ILLNESS: Patient is status post Robotic assisted da Sariah Xi laparoscopic Georgiana-en-Y gastric bypass and Intraoperative esophagogastrojejunoscopy. Patient is complaining of some left-sided abdominal pain with nausea. He is not passing any gas yet. No vomiting. He is afebrile. WBC 19.53 elevated white count likely secondary to steroids. hemoglobin 11.1 platelets 264 sodium 140 potassium 4.4 creatinine 0.8 PHYSICAL EXAM: VITAL SIGNS: Reviewed GENERAL: Well-developed in no acute distress. HEENT: No sclera icterus. Extraocular movements grossly intact. Moist buccal mucosa. Head is atraumatic, normocephalic. Hears conversational speech. No nasal drainage. NECK: Supple without lymphadenopathy. CHEST: Non-labored respirations and equal bilateral excursions. CARDIOVASCULAR: Palpable 2+ radial pulses. ABDOMEN: Soft. Incision site is clean dry and intact. Has abdominal binder in place. Left-sided tenderness with palpation MUSCULOSKELETAL: No clubbing or cyanosis. NEUROLOGIC: No focal or lateralizing signs. Cranial nerves II through XII grossly intact. PSYCH: Appropriate affect. Alert and oriented to person, place and time. SKIN: Well perfused. Good skin turgor. ASSESSMENT: 1. Morbid obesity due to excess calories 2. Body mass index of 39.4, initial 3. Depressive disorder 4. Hyperlipidemia 5. Diabetes type II [id number] 6. Obstructive sleep apnea 7. Obstructive uropathy due to prostate disorder 8. Bilateral inguinal hernia 9. Leukocytosis likely secondary to steroids PLAN: -Continue bariatric clear liquid diet -Repeat labs in a.m. -Continue IV Dilaudid and IV Tylenol for pain -Add Lidoderm patch for pain -Increase the Mylicon drops to 100 mg 4 times a day -Encourage patient to ambulate -Abdominal binder adjusted -Continue to use incentive spirometer -Continue antiemetics -GI prophylaxis Protonix and DVT prophylaxis Lovenox Physician Maintenance Machinist note has been reviewed by physician. Signing provider agrees with the documented findings, assessment, and plan of care. Objective - Vital Signs Vital signs: Vital Signs Temp 97.9 F 09/03/20 13:39 Pulse 70 09/03/20 15:23 Resp 17 09/03/20 13:39 BP 131/80 09/03/20 13:39 Pulse Ox 98 09/03/20 13:39 Intake & Output 09/02/20 09/03/20 09/03/20 18:59 06:59 18:59 Intake Total 1650 Output Total 20 500 Balance 1630 -500 Weight 104.1 kg 104.1 kg 104.1 kg Intake: IV 1650 Output: Urine 500 Estimated Blood Loss 20 - Labs CBC & Chem 7: 09/03/20 05:35 09/03/20 05:35 Labs: Abnormal Lab Results - Last 24 Hours (Table) 09/03/20 09/03/20 Range/Units 05:35 05:35 WBC 19.43 H (4.50-10.00) X 10*3/uL RBC 3.62 L (4.40-5.60) X 10*6/uL Hgb 11.1 L (13.0-17.0) g/dL Hct 32.5 L (39.6-50.0) % MPV 9.4 L (9.5-12.2) fL Immature Gran # 0.10 H (0.00-0.04) X 10*3/uL Neutrophils # 16.74 H (1.80-7.70) X 10*3/uL Monocytes # 1.28 H (0.20-1.00) X 10*3/uL Eosinophils # 0 L (0.04-0.35) X 10*3/uL Chloride 112 H (96-109) mmol/L Carbon Dioxide 18.1 L (21.6-31.8) mmol/L Calcium 8.4 L (8.7-10.3) mg/dL <Michell Rolle N - Last Filed: 09/03/20 22:07> Subjective Patient seen and evaluated Objective - Vital Signs Vital signs: Vital Signs Temp 98.4 F 09/03/20 20:07 Pulse 104 H 09/03/20 21:47 Resp 18 09/03/20 20:07 BP 102/68 09/03/20 21:47 Pulse Ox 96 09/03/20 21:47 Intake & Output 09/03/20 09/03/20 09/04/20 06:59 18:59 06:59 Intake Total 2800 Output Total 500 Balance -500 2800 Weight 104.1 kg 104.1 kg Intake: Intake, IV Titration 2800 Amount ACETAMINOPHEN IV (For NPO 800 ) 1,000 mg In Empty Bag 1 bag @ 400 mls/hr IVPB Q6HR [facility] Rx#:[id number] Sodium Chloride 0.9% 2, 2000 000 ml @ 999 mls/hr IV . Q2H1M [facility] Rx#:[id number] Output: Urine 500 - Labs CBC & Chem 7: 09/03/20 20:43 09/03/20 05:35 Labs: Abnormal Lab Results - Last 24 Hours (Table) 09/03/20 09/03/20 09/03/20 Range/Units 05:35 05:35 20:43 WBC 19.43 H 13.8 H (4.50-10.00) X 10*3/uL RBC 3.62 L 2.63 L (4.40-5.60) X 10*6/uL Hgb 11.1 L 7.8 L D (13.0-17.0) g/dL Hct 32.5 L 23.5 L (39.6-50.0) % MPV 9.4 L (9.5-12.2) fL Immature Gran # 0.10 H (0.00-0.04) X 10*3/uL Neutrophils # 16.74 H 10.7 H (1.80-7.70) X 10*3/uL Monocytes # 1.28 H (0.20-1.00) X 10*3/uL Eosinophils # 0 L (0.04-0.35) X 10*3/uL Chloride 112 H (96-109) mmol/L Carbon Dioxide 18.1 L (21.6-31.8) mmol/L Calcium 8.4 L (8.7-10.3) mg/dL
[2020-09-03] MEDS: LACTATED RINGERS 1,000 ML IV SCH (19:13)
[2020-09-03 20:58] LABS: Basophils % (A) 0 %; Eosinophils % (A) 0 %; HCT 23.5 % (39.0-53.0); Lymphocytes # (A) 2.2 k/uL (1.0-4.8); Lymphocytes % (A) 16 %; MCH 29.8 pg (25.0-35.0); MCHC 33.3 g/dL (31.0-37.0); MCV 89.5 fL (80.0-100.0); Mean Platelet Volume 6.5; Monocytes # (A) 0.7 k/uL (0-1.0); Monocytes % (A) 5 %; Neutrophils # (A) 10.7 k/uL (1.3-7.7); Neutrophils % (A) 77 %; Platelet Count 258 k/uL (150-450); RBC 2.63 m/uL (4.30-5.90); RDW 13.5 % (11.5-15.5); WBC 13.8 k/uL (3.8-10.6)
[2020-09-03 21:20] LABS: HGB 7.8 gm/dL (13.0-17.5)
[2020-09-03] MEDS: SODIUM FERRIC GLUCONAT-SUCROSE 125 MG in SODIUM CHLORIDE 0.9% 100 ML IVPB SCH (23:21)
[2020-09-04] MEDS: ACETAMINOPHEN IV (For NPO) 1,000 MG in EMPTY BAG 1 BAG IVPB SCH ×3 (00:22→12:29)
[2020-09-04] MEDS: metroNIDAZOLE-NS PMX 500 MG in SALINE 1 100ML.BAG IVPB SCH ×4 (01:15→17:35)
[2020-09-04] MEDS: 0.9% NACL WITH KCL 20 MEQ/L 1,000 ML IV SCH ×2 (03:34→20:26)
[2020-09-04] MEDS: ONDANSETRON 4 MG/2 ML VIAL IVP SCH ×4 (06:03→23:52)
[2020-09-04] MEDS: SIMETHICONE 40 MG/0.6 ML DROPS 2,000 MG/30 ML BOTTLE PO SCH ×4 (06:03→23:51)
[2020-09-04] MEDS ORDERED: bisacodyL 5 MG TABLET.DR PO PRN (08:00)
[2020-09-04] MEDS: buPROPion SR 150 MG TABLET.ER PO SCH (08:07)
[2020-09-04] MEDS: PANTOPRAZOLE 40 MG/10 ML VIAL IV SCH (08:07)
[2020-09-04] MEDS: LIDOCAINE 5% PATCH TOPICAL SCH (08:10)
[2020-09-04] MEDS: ALBUTEROL NEBULIZED 2.5 MG/3 ML INHALATION SCH ×4 (08:23→19:54)
[2020-09-04] MEDS: TAMSULOSIN 0.4 MG CAP.ER.24H PO SCH (10:02)
[2020-09-04] MEDS: DESMOPRESSIN ACETATE 4 MCG/ML VIAL (MDV) SQ SCH (10:03)
[2020-09-04 10:58] LABS: Basophils # (A) 0.03 X 10*3/uL (0.00-0.10); Basophils % (A) 0.2 %; Eosinophils # (A) 0.02 X 10*3/uL (0.04-0.35); Eosinophils % (A) 0.2 %; Lymphocytes # (A) 2.63 X 10*3/uL (0.90-5.00); Lymphocytes % (A) 20.7 %; Monocytes % (A) 7.1 %; Neutrophils # (A) 9.02 X 10*3/uL (1.80-7.70); Neutrophils % (A) 71.2 %
[2020-09-04 10:59] LABS: HCT 19.6 % (39.6-50.0); HGB 6.4 g/dL (13.0-17.0); MCH 30.3 pg (27.0-32.0); MCHC 32.7 g/dL (32.0-37.0); MCV 92.9 fL (80.0-97.0); Mean Platelet Volume 9.8 fL (9.5-12.2); Platelet Count 207 X 10*3/uL (140-440); RBC 2.11 X 10*6/uL (4.40-5.60); RDW 13.1 % (11.5-14.5); WBC 12.68 X 10*3/uL (4.50-10.00)
[2020-09-04 13:21] LABS: African American GFR (CKD) 94.4 (60.0-200.0); Anion Gap 6.7 mmol/L (4.00-12.00); Calcium 7.8 mg/dL (8.7-10.3); Carbon Dioxide 20.3 mmol/L (21.6-31.8); Non-African American GFR(CKD) 81.4 (60.0-200.0)
--- NOTE | 2020-09-04 14:29 | P.PN ---
<SureshTwila bustillo - Last Filed: 09/04/20 15:17> Subjective Progress Note Date: 09/04/20 CHIEF COMPLAINT: Morbid obesity HISTORY OF PRESENT ILLNESS: Patient is status post Robotic assisted da Sariah Xi laparoscopic Georgiana-en-Y gastric bypass and Intraoperative esophagogastrojejunoscopy. Patient reports that his abdominal pain is controlled. He complains of feeling tired this morning. He denies any shortness of breath or dizziness. Patient had bloody bowel movements yesterday evening. He did have a drop in his hemoglobin to 7.8. He was also tachycardic and hypotensive. He was given IV iron and 2Liter IV fluid bolus. Lovenox was discontinued. He was given DDAVP today. Hemoglobin this morning is 6.4. Patient is going to receive 1 unit of blood. He is afebrile. Heart rate has improved to 79. Blood pressure this morning 90/54 on room air satting at 92%. WBC 12.68 hemoglobin 6.4 platelets 207 BUN 18 creatinine 1.0 PHYSICAL EXAM: VITAL SIGNS: Reviewed GENERAL: Well-developed in no acute distress. HEENT: No sclera icterus. Extraocular movements grossly intact. Moist buccal mucosa. Head is atraumatic, normocephalic. Hears conversational speech. No nasal drainage. NECK: Supple without lymphadenopathy. CHEST: Non-labored respirations and equal bilateral excursions. CARDIOVASCULAR: Palpable 2+ radial pulses. ABDOMEN: Soft. Nondistended. Incision site is clean dry and intact. Has abdominal binder in place. MUSCULOSKELETAL: No clubbing or cyanosis. NEUROLOGIC: No focal or lateralizing signs. Cranial nerves II through XII grossly intact. PSYCH: Appropriate affect. Alert and oriented to person, place and time. SKIN: Well perfused. Good skin turgor. ASSESSMENT: 1. Morbid obesity due to excess calories 2. Body mass index of 39.4, initial 3. Depressive disorder 4. Hyperlipidemia 5. Diabetes type II [id number] 6. Obstructive sleep apnea 7. Obstructive uropathy due to prostate disorder 8. Bilateral inguinal hernia 9. Leukocytosis likely secondary to steroids 10. Acute blood loss anemia PLAN: -1 unit of blood ordered for hemoglobin of 6.4 -Repeat CBC in a.m. -Continue antibiotics -Continue bariatric clear liquid diet -Continue IV Dilaudid -Continue Lidoderm patch for pain -Continue Mylicon drops -Encourage patient to ambulate -Continue to use incentive spirometer -Continue abdominal binder -Resume patient's Flomax -Add Ambien as needed for sleep -GI prophylaxis Protonix and DVT prophylaxis Lovenox Physician Size Mixer note has been reviewed by physician. Signing provider agrees with the documented findings, assessment, and plan of care. Objective - Vital Signs Vital signs: Vital Signs Temp 98.6 F 09/04/20 07:24 Pulse 85 09/04/20 12:03 Resp 17 09/04/20 08:10 BP 90/54 09/04/20 07:24 Pulse Ox 92 L 09/04/20 07:24 Intake & Output 09/03/20 09/04/20 09/04/20 18:59 06:59 18:59 Intake Total 2800 Balance 2800 Weight 104.1 kg Intake: Intake, IV Titration 2800 Amount ACETAMINOPHEN IV (For NPO 800 ) 1,000 mg In Empty Bag 1 bag @ 400 mls/hr IVPB Q6HR [facility] Rx#:[id number] Sodium Chloride 0.9% 2, 2000 000 ml @ 999 mls/hr IV . Q2H1M [facility] Rx#:[id number] Other: Voiding Method Toilet Urinal # Bowel Movements 7 - Labs CBC & Chem 7: 09/04/20 05:34 09/04/20 05:34 Labs: Abnormal Lab Results - Last 24 Hours (Table) 09/03/20 09/04/20 09/04/20 Range/Units 20:43 05:34 05:34 WBC 13.8 H 12.68 H (3.8-10.6) k/uL RBC 2.63 L 2.11 L (4.30-5.90) m/uL Hgb 7.8 L D 6.4 L* (13.0-17.5) gm/dL Hct 23.5 L 19.6 L* (39.0-53.0) % Immature Gran # 0.08 H (0.00-0.04) X 10*3/uL Neutrophils # 10.7 H 9.02 H (1.3-7.7) k/uL Eosinophils # 0.02 L (0.04-0.35) X 10*3/uL Chloride 114 H (96-109) mmol/L Carbon Dioxide 20.3 L (21.6-31.8) mmol/L Calcium 7.8 L (8.7-10.3) mg/dL Crossmatch 09/04/20 Range/Units 12:29 WBC (3.8-10.6) k/uL RBC (4.30-5.90) m/uL Hgb (13.0-17.5) gm/dL Hct (39.0-53.0) % Immature Gran # (0.00-0.04) X 10*3/uL Neutrophils # (1.3-7.7) k/uL Eosinophils # (0.04-0.35) X 10*3/uL Chloride (96-109) mmol/L Carbon Dioxide (21.6-31.8) mmol/L Calcium (8.7-10.3) mg/dL Crossmatch See Detail <Aquilino,Karen N - Last Filed: 09/04/20 18:13> Subjective He has moderate urinary retention of 500 mL. He was given blood. He reports another blood bowel movement this evening improved from 8 yesterday per his recollection. All blood thinners have been discontinued. Objective - Vital Signs Vital signs: Vital Signs Temp 99.6 F 09/04/20 15:50 Pulse 84 09/04/20 16:35 Resp 18 09/04/20 15:50 BP 93/59 09/04/20 15:50 Pulse Ox 95 09/04/20 15:50 Intake & Output 09/03/20 09/04/20 09/04/20 18:59 06:59 18:59 Intake Total 2800 150 Balance 2800 150 Weight 104.1 kg Intake: Intake, IV Titration 2800 150 Amount ACETAMINOPHEN IV (For NPO 800 ) 1,000 mg In Empty Bag 1 bag @ 400 mls/hr IVPB Q6HR [facility] Rx#:[id number] Sodium Chloride 0.9% 2, 2000 000 ml @ 999 mls/hr IV . Q2H1M [facility] Rx#:[id number] ceFAZolin 2 gm In Sodium 50 Chloride 0.9% 50 ml @ 100 mls/hr IVPB Q8HR [facility] Rx# :[id number] metroNIDAZOLE-NS PMX 500 100 mg In Saline 1 100ml.bag @ 100 mls/hr IVPB Q6HR [facility] Rx#:[id number] Blood Product 0 Rc As-1 Unit 0 [id number] Other: Voiding Method Toilet Urinal # Bowel Movements 7 - Labs CBC & Chem 7: 09/04/20 05:34 09/04/20 05:34 Labs: Abnormal Lab Results - Last 24 Hours (Table) 09/03/20 09/04/20 09/04/20 Range/Units 20:43 05:34 05:34 WBC 13.8 H 12.68 H (3.8-10.6) k/uL RBC 2.63 L 2.11 L (4.30-5.90) m/uL Hgb 7.8 L D 6.4 L* (13.0-17.5) gm/dL Hct 23.5 L 19.6 L* (39.0-53.0) % Immature Gran # 0.08 H (0.00-0.04) X 10*3/uL Neutrophils # 10.7 H 9.02 H (1.3-7.7) k/uL Eosinophils # 0.02 L (0.04-0.35) X 10*3/uL Chloride 114 H (96-109) mmol/L Carbon Dioxide 20.3 L (21.6-31.8) mmol/L Calcium 7.8 L (8.7-10.3) mg/dL Crossmatch 09/04/20 Range/Units 12:29 WBC (3.8-10.6) k/uL RBC (4.30-5.90) m/uL Hgb (13.0-17.5) gm/dL Hct (39.0-53.0) % Immature Gran # (0.00-0.04) X 10*3/uL Neutrophils # (1.3-7.7) k/uL Eosinophils # (0.04-0.35) X 10*3/uL Chloride (96-109) mmol/L Carbon Dioxide (21.6-31.8) mmol/L Calcium (8.7-10.3) mg/dL Crossmatch See Detail
[2020-09-04] MEDS ORDERED: TAMSULOSIN 0.4 MG CAP.ER.24H PO STA (15:28)
[2020-09-04 18:44] LABS: MCH 31.1 pg (25.0-35.0); MCHC 34.9 g/dL (31.0-37.0); MCV 89.1 fL (80.0-100.0); Mean Platelet Volume 6.7; Platelet Count 157 k/uL (150-450); RDW 13.1 % (11.5-15.5)
[2020-09-04 18:52] LABS: HGB 6.2 gm/dL (13.0-17.5)
[2020-09-04 18:53] LABS: HCT 17.8 % (39.0-53.0)
[2020-09-04] MEDS: LACTATED RINGERS 1,000 ML IV SCH (19:25)
[2020-09-04] MEDS: SODIUM FERRIC GLUCONAT-SUCROSE 125 MG in SODIUM CHLORIDE 0.9% 100 ML IVPB SCH (20:41)
[2020-09-04] MEDS ORDERED: ZOLPIDEM 5 MG TAB PO PRN (21:00)
[2020-09-05] MEDS: metroNIDAZOLE-NS PMX 500 MG in SALINE 1 100ML.BAG IVPB SCH ×4 (00:26→18:33)
[2020-09-05] MEDS: 0.9% NACL WITH KCL 20 MEQ/L 1,000 ML IV SCH ×2 (00:26→18:37)
[2020-09-05] MEDS: ONDANSETRON 4 MG/2 ML VIAL IVP SCH (05:53)
[2020-09-05] MEDS: SIMETHICONE 40 MG/0.6 ML DROPS 2,000 MG/30 ML BOTTLE PO SCH ×3 (05:54→18:33)
[2020-09-05] MEDS: ALBUTEROL NEBULIZED 2.5 MG/3 ML INHALATION SCH ×4 (08:03→19:29)
[2020-09-05] MEDS: PANTOPRAZOLE 40 MG/10 ML VIAL IV SCH (09:46)
[2020-09-05] MEDS: LIDOCAINE 5% PATCH TOPICAL SCH (09:47)
[2020-09-05] MEDS: DESMOPRESSIN ACETATE 4 MCG/ML VIAL (MDV) SQ SCH (09:47)
[2020-09-05] MEDS: buPROPion SR 150 MG TABLET.ER PO SCH (09:47)
[2020-09-05] MEDS: TAMSULOSIN 0.4 MG CAP.ER.24H PO SCH (09:47)
[2020-09-05 09:53] LABS: African American GFR (CKD) 112.5 (60.0-200.0); Anion Gap 6.7 mmol/L (4.00-12.00); BUN/Creat Ratio 16.25 Ratio (12.00-20.00); Calcium 7.6 mg/dL (8.7-10.3); Carbon Dioxide 20.3 mmol/L (21.6-31.8); Non-African American GFR(CKD) 97.1 (60.0-200.0); Potassium 3.8 mmol/L (3.5-5.5)
[2020-09-05 10:25] LABS: Basophils # (A) 0.02 X 10*3/uL (0.00-0.10); Basophils % (A) 0.3 %; Eosinophils # (A) 0.04 X 10*3/uL (0.04-0.35); Eosinophils % (A) 0.6 %; HGB 5.9 g/dL (13.0-17.0); Lymphocytes # (A) 1.29 X 10*3/uL (0.90-5.00); Lymphocytes % (A) 19.5 %; MCH 30.1 pg (27.0-32.0); MCHC 32.8 g/dL (32.0-37.0); MCV 91.8 fL (80.0-97.0); Mean Platelet Volume 9.9 fL (9.5-12.2); Monocytes # (A) 0.51 X 10*3/uL (0.20-1.00); Monocytes % (A) 7.7 %; Neutrophils # (A) 4.74 X 10*3/uL (1.80-7.70); Neutrophils % (A) 71.4 %; Platelet Count 123 X 10*3/uL (140-440); RBC 1.96 X 10*6/uL (4.40-5.60); RDW 13.6 % (11.5-14.5); WBC 6.63 X 10*3/uL (4.50-10.00)
--- NOTE | 2020-09-05 14:53 | P.PN ---
Subjective Progress Note Date: 09/05/20 CHIEF COMPLAINT: Morbid obesity HISTORY OF PRESENT ILLNESS: Patient is status post Robotic assisted da Sariah Xi laparoscopic [place]-en-Y gastric bypass and Intraoperative esophagogastrojejunoscopy. Patient had bloody stools the night last night and a bloody bowel movements this morning about 400 mL and quantity. Patient states that he feels tired and fuzzy in the head. He reports feeling slightly conf used. He does have some mild abdominal discomfort at surgical sites. Denies any nausea or vomiting. Hemoglobin last night was 6.2 patient received another unit of blood. Hemoglobin this morning 5.9 patient received receiving another 2 units of blood and FFP. Patient continues on IV fluids. He is also received IV iron and DDAVP. Lovenox was discontinued yesterday. Afebrile. Heart rate 93 b lood pressure 99/61 WBC 6.63 hemoglobin 5.9 platelets 123 sodium 141 potassium 3.8 creatinine 0.8 PHYSICAL EXAM: VITAL SIGNS: Reviewed GENERAL: Well-developed in no acute distress. HEENT: No sclera icterus. Extraocular movements grossly intact. Moist buccal mucosa. Head is atraumatic, normocephalic. Hears conversational speech. No nasal drainage. NECK: Supple without lymphadenopathy. CHEST: Non-labored respirations and equal bilateral excursions. CARDIOVASCULAR: Palpable 2+ radial pulses. ABDOMEN: Soft. Nondistended. Incision site is clean dry and intact. Has abdominal binder in place. MUSCULOSKELETAL: No clubbing or cyanosis. NEUROLOGIC: No focal or lateralizing signs. Cranial nerves II through XII grossly intact. PSYCH: Appropriate affect. Alert and oriented to person, place and time. SKIN: Well perfused. Good skin turgor. ASSESSMENT: 1. Morbid obesity due to excess calories 2. Body mass index of 39.4, initial 3. Depressive disorder 4. Hyperlipidemia 5. Diabetes type II [id number] 6. Obstructive sleep apnea 7. Obstructive uropathy due to prostate disorder 8. Bilateral inguinal hernia 9. Leukocytosis likely secondary to steroids. Now resolved 10. Expected Acute blood loss anemia PLAN: -2 units of blood and 1 unit of FFP ordered this morning for HGB 5.9 -Repeat CBC at 6:00 tonight -Continue to monitor for bloody bowel movements -Advance diet to bariatric full liquid and add premier protein shakes -Discontinue Newman catheter -Continue antibiotics -Add liquid Tylenol PRN pain -Resume patient's Effexor -Continue Mylicon drops -Encourage patient to ambulate -Continue to use incentive spirometer -Add Ambien scheduled for sleep -GI prophylaxis Protonix Physician Plant Pathology Teacher note has been reviewed by physician. Signing provider agrees with the documented findings, assessment, and plan of care. Objective - Vital Signs Vital signs: Vital Signs Temp 97.9 F 09/05/20 12:08 Pulse 93 09/05/20 12:08 Resp 17 09/05/20 12:08 BP 99/61 09/05/20 12:08 Pulse Ox 99 09/05/20 12:08 Intake & Output 09/04/20 09/05/20 09/05/20 18:59 06:59 18:59 Intake Total 460 310 0 Output Total 400 Balance 460 310 -400 Intake: Intake, IV Titration 150 Amount ceFAZolin 2 gm In Sodium 50 Chloride 0.9% 50 ml @ 100 mls/hr IVPB Q8HR BATOOL Rx# :[id number]-NS PMX 500 100 mg In Saline 1 100ml.bag @ 100 mls/hr IVPB Q6HR BATOOL Rx#:[id number] Blood Product 310 310 0 Ffp 24 Cpd Unit 0 [id number] Rc As-1 Unit 310 [id number] Rc As-1 Unit 310 [id number] Rc As-1 Unit 0 [id number] Output: Stool 400 Other: Voiding Method Urinal Urinal Urinal # Bowel Movements 1 - Labs CBC & Chem 7: 09/05/20 06:20 09/05/20 06:20 Labs: Abnormal Lab Results - Last 24 Hours (Table) 09/04/20 09/04/20 09/05/20 Range/Units 12:29 18:15 06:20 RBC 2.00 L 1.96 L (4.30-5.90) m/uL Hgb 6.2 L* D 5.9 L* (13.0-17.5) gm/dL Hct 17.8 L* 18.0 L* (39.0-53.0) % Plt Count 123 L (140-440) X 10*3/uL Chloride (96-109) mmol/L Carbon Dioxide (21.6-31.8) mmol/L Calcium (8.7-10.3) mg/dL Crossmatch See Detail 09/05/20 Range/Units 06:20 RBC (4.30-5.90) m/uL Hgb (13.0-17.5) gm/dL Hct (39.0-53.0) % Plt Count (140-440) X 10*3/uL Chloride 114 H (96-109) mmol/L Carbon Dioxide 20.3 L (21.6-31.8) mmol/L Calcium 7.6 L (8.7-10.3) mg/dL Crossmatch
[2020-09-05] MEDS: ACETAMINOPHEN ORAL SUSP (PEDS) 3,840 MG/120 ML BOTTLE PO SCH ×3 (15:59→22:08)
[2020-09-05] MEDS: VENLAFAXINE HCL 37.5 MG TAB PO SCH (16:00)
[2020-09-05 18:20] LABS: HCT 22.2 % (39.0-53.0); HGB 7.5 gm/dL (13.0-17.5); MCH 29.9 pg (25.0-35.0); MCHC 33.7 g/dL (31.0-37.0); MCV 88.8 fL (80.0-100.0); Platelet Count 137 k/uL (150-450); WBC 6.2 k/uL (3.8-10.6)
[2020-09-05] MEDS: LACTATED RINGERS 1,000 ML IV SCH (19:23)
[2020-09-05] MEDS: SODIUM FERRIC GLUCONAT-SUCROSE 125 MG in SODIUM CHLORIDE 0.9% 100 ML IVPB SCH (22:08)
[2020-09-06] MEDS: 0.9% NACL WITH KCL 20 MEQ/L 1,000 ML IV SCH (00:01)
[2020-09-06] MEDS: metroNIDAZOLE-NS PMX 500 MG in SALINE 1 100ML.BAG IVPB SCH ×3 (00:01→13:04)
[2020-09-06] MEDS: SIMETHICONE 40 MG/0.6 ML DROPS 2,000 MG/30 ML BOTTLE PO SCH ×3 (00:02→13:03)
[2020-09-06] MEDS: ACETAMINOPHEN ORAL SUSP (PEDS) 3,840 MG/120 ML BOTTLE PO SCH ×2 (04:02→08:29)
[2020-09-06 06:01] LABS: HCT 23.6 % (39.0-53.0); MCH 30.3 pg (25.0-35.0); MCV 88.9 fL (80.0-100.0); Mean Platelet Volume 7.1; Platelet Count 144 k/uL (150-450); RBC 2.65 m/uL (4.30-5.90); RDW 14.4 % (11.5-15.5); WBC 5.4 k/uL (3.8-10.6)
[2020-09-06 06:56] LABS: African American GFR (CKD) >90 (>60 ml/min/1.73 sqM); Anion Gap 3 mmol/L; Blood Urea Nitrogen 13 mg/dL (9-20); Calcium 8.2 mg/dL (8.4-10.2); Carbon Dioxide 25 mmol/L (22-30); Chloride 113 mmol/L (98-107); Glucose 110 mg/dL (74-99); Non-African American GFR(CKD) >90 (>60 ml/min/1.73 sqM); Potassium 3.6 mmol/L (3.5-5.1); Sodium 141 mmol/L (137-145)
[2020-09-06] MEDS: ALBUTEROL NEBULIZED 2.5 MG/3 ML INHALATION SCH ×3 (07:35→15:37)
[2020-09-06] MEDS: PANTOPRAZOLE 40 MG/10 ML VIAL IV SCH (08:28)
[2020-09-06] MEDS: DESMOPRESSIN ACETATE 4 MCG/ML VIAL (MDV) SQ SCH (08:28)
[2020-09-06] MEDS: TAMSULOSIN 0.4 MG CAP.ER.24H PO SCH (08:29)
[2020-09-06] MEDS: LIDOCAINE 5% PATCH TOPICAL SCH (08:29)
[2020-09-06] MEDS: VENLAFAXINE HCL 37.5 MG TAB PO SCH (08:29)
[2020-09-06] MEDS: buPROPion SR 150 MG TABLET.ER PO SCH (10:49)
--- NOTE | 2020-09-06 11:34 | P.DS ---
Providers Date of admission: 09/02/20 11:49 Expected date of discharge: 09/06/20 Attending physician: Michell Rolle Primary care physician: Shaquille Orantes - Discharge Diagnosis(es) (1) Acute blood loss anemia Current Visit: Yes Status: Acute (2) Adult BMI 39.0-39.9 kg/sq m Current Visit: Yes Status: Acute (3) Depressive disorder Current Visit: Yes Status: Acute (4) Diabetes type 2, controlled Current Visit: Yes Status: Acute (5) Gastroesophageal reflux disease Current Visit: Yes Status: Acute (6) Morbid (severe) obesity due to excess calories Current Visit: Yes Status: Acute (7) Sleep apnea Current Visit: Yes Status: Acute Hospital Course: POSTOPERATIVE DIAGNOSES: 1. Morbid obesity due to excess calories 2. Body mass index of 39.4, initial 3. Depressive disorder 4. Hyperlipidemia 5. Diabetes type II [id number] 6. Obstructive sleep apnea 7. Obstructive uropathy due to prostate disorder 8. Bilateral inguinal hernia COURSE: The patient is a 60-year-old male admitted for morbid obesity. He completed the bariatric program including medical risk assessment, cardiac risk assessment, psychological assessment: Nutritional classes. He underwent a robotic Alla-en-Y gastric bypass. Patient was taking preoperative antidepressants which increased risk for bleeding. He was placed on prophylactic dose of Lovenox. Patient had a adverse event from Lovenox with acute blood loss anemia treated with blood products. Anticoagulants were discontinued. Infected discharge, repeat hemoglobins were improving with final hemoglobin of 8.0 prior to discharge. Patient encouraged to use incentive spirometer for pre-existing history of chronic obstructive pulmonary disease due to sleep apnea. Discharge instructions were reviewed. Patient was tolerating diet. He was having bowel movements. He was voiding spontaneously. ROS: No reports of nausea and vomiting. No fevers or chills. PHYSICAL EXAM: VITAL SIGNS: Reviewed CONSTITUTIONAL: Well developed and in no acute distress. EYES: Conjuctivae without sclera icterus. Extraocular movements grossly intact. HEAD, EARS, NOSE, THROAT: Moist buccal mucosa. Head is atraumatic, normocephalic. Hears conversational speech. No nasal drainage. NECK: Supple. RESPIRATORY: Non-labored respirations and equal bilateral excursions. CARDIOVASCULAR: Palpable 2+ radial pulses. ABDOMEN: No peritonitis. MUSCULOSKELETAL: No gross deformity of the lower extremities noted. No clubbing. No cyanosis. SKIN: Good skin turgor. Well perfused. NEUROLOGIC: Cranial nerves II through XII grossly intact. No focal or lateralizing signs. PSYCH: Appropriate affect. Alert and oriented to person, place and time. CLINICAL LABS: WBC normal 5.8. Hemoglobin 8.0. Laboratory Last Values WBC 5.4 k/uL (3.8-10.6) 09/06/20 05:39 RBC 2.65 m/uL (4.30-5.90) L 09/06/20 05:39 Hgb 8.0 gm/dL (13.0-17.5) L 09/06/20 05:39 Hct 23.6 % (39.0-53.0) L 09/06/20 05:39 MCV 88.9 fL (80.0-100.0) 09/06/20 05:39 MCH 30.3 pg (25.0-35.0) 09/06/20 05:39 MCHC 34.0 g/dL (31.0-37.0) 09/06/20 05:39 RDW 14.4 % (11.5-15.5) 09/06/20 05:39 Plt Count 144 k/uL (150-450) L 09/06/20 05:39 Plt Count Comment Adequate 09/04/20 05:34 MPV 7.1 09/06/20 05:39 Immature Gran % (Auto) 0.5 % 09/05/20 06:20 Absolute Nucleated RBC 0 X 10*3/uL (0.00-0.00) 09/05/20 06:20 Neutrophils % 71.4 % 09/05/20 06:20 Lymphocytes % 19.5 % 09/05/20 06:20 Monocytes % 7.7 % 09/05/20 06:20 Eosinophils % 0.6 % 09/05/20 06:20 Basophils % 0.3 % 09/05/20 06:20 Immature Gran # 0.03 X 10*3/uL (0.00-0.04) 09/05/20 06:20 Neutrophils # 4.74 X 10*3/uL (1.80-7.70) 09/05/20 06:20 Lymphocytes # 1.29 X 10*3/uL (0.90-5.00) 09/05/20 06:20 Monocytes # 0.51 X 10*3/uL (0.20-1.00) 09/05/20 06:20 Eosinophils # 0.04 X 10*3/uL (0.04-0.35) 09/05/20 06:20 Basophils # 0.02 X 10*3/uL (0.00-0.10) 09/05/20 06:20 NRBC/100 WBC Diff 0 /100 WBCS (0.0-0.0) 09/05/20 06:20 RBC Morphology NORMAL 09/04/20 05:34 Sodium 141 mmol/L (137-145) 09/06/20 05:39 Potassium 3.6 mmol/L (3.5-5.1) 09/06/20 05:39 Chloride 113 mmol/L (98-107) H 09/06/20 05:39 Carbon Dioxide 25 mmol/L (22-30) 09/06/20 05:39 Anion Gap 3 mmol/L 09/06/20 05:39 BUN 13 mg/dL (9-20) 09/06/20 05:39 Creatinine 0.80 mg/dL (0.66-1.25) 09/06/20 05:39 Est GFR (CKD-EPI)AfAm >90 (>60 ml/min/1.73 sqM) 09/06/20 05:39 Est GFR (CKD-EPI)NonAf >90 (>60 ml/min/1.73 sqM) 09/06/20 05:39 BUN/Creatinine Ratio 16.25 Ratio (12.00-20.00) 09/05/20 06:20 Glucose 110 mg/dL (74-99) H 09/06/20 05:39 Calcium 8.2 mg/dL (8.4-10.2) L 09/06/20 05:39 Phosphorus 3.8 mg/dL (2.4-5.1) 09/03/20 05:35 Magnesium 1.7 mg/dL (1.5-2.4) 09/03/20 05:35 Coronavirus (PCR) Not Detected (Not Detectd) 09/02/20 12:25 Blood Type A Positive 09/04/20 12:29 Blood Type Confirm A Positive 09/02/20 12:26 Blood Type Recheck A Pos 09/04/20 12:29 Bld Type Recheck Status No 09/04/20 12:29 Antibody Screen NEGATIVE 09/04/20 12:29 Crossmatch See Detail 09/04/20 12:29 Transfuse Plasma 09/05/2020 09/05/20 10:44 Spec Expiration Date 09/07/2020232809/04/20 12:29 Vital Signs 09/02/20 09/02/20 09/02/20 12:20 13:40 17:42 Temperature 98.3 F 98.7 F Pulse Rate Pulse Rate [ 62 81 83 Pulse Oximetery ] Respiratory 16 16 12 Rate Blood Pressure Blood Pressure 158/70 [Left Arm Supine] Blood Pressure [Right Arm Supine] Blood Pressure 128/70 119/62 [Right Arm] O2 Sat by Pulse 95 97 98 Oximetry 09/02/20 09/02/20 09/02/20 18:00 18:14 18:31 Temperature Pulse Rate Pulse Rate [ 77 77 76 Pulse Oximetery ] Respiratory 16 16 14 Rate Blood Pressure Blood Pressure 156/78 160/79 [Left Arm Supine] Blood Pressure 145/71 [Right Arm Supine] Blood Pressure [Right Arm] O2 Sat by Pulse 97 95 97 Oximetry 09/02/20 09/02/20 09/02/20 18:37 18:44 19:02 Temperature 98.3 F Pulse Rate Pulse Rate [ 74 71 73 Pulse Oximetery ] Respiratory 16 14 Rate Blood Pressure Blood Pressure [Left Arm Supine] Blood Pressure 128/70 141/73 152/79 [Right Arm Supine] Blood Pressure [Right Arm] O2 Sat by Pulse 93 L 92 L 94 L Oximetry 09/02/20 09/02/20 09/02/20 19:17 19:22 19:32 Temperature Pulse Rate Pulse Rate [ 74 80 Pulse Oximetery ] Respiratory 16 Rate Blood Pressure Blood Pressure [Left Arm Supine] Blood Pressure 154/84 146/87 [Right Arm Supine] Blood Pressure [Right Arm] O2 Sat by Pulse Oximetry 09/02/20 09/02/20 09/02/20 19:47 20:02 20:17 Temperature Pulse Rate Pulse Rate [ 73 82 69 Pulse Oximetery ] Respiratory Rate Blood Pressure Blood Pressure [Left Arm Supine] Blood Pressure 157/80 137/85 150/77 [Right Arm Supine] Blood Pressure [Right Arm] O2 Sat by Pulse 95 96 Oximetry 09/02/20 09/02/20 09/02/20 20:30 20:32 20:41 Temperature Pulse Rate 66 72 Pulse Rate [ 69 Pulse Oximetery ] Respiratory Rate Blood Pressure Blood Pressure [Left Arm Supine] Blood Pressure 135/76 [Right Arm Supine] Blood Pressure [Right Arm] O2 Sat by Pulse 94 L 98 Oximetry 09/02/20 09/02/20 09/02/20 20:47 21:02 21:32 Temperature Pulse Rate Pulse Rate [ 73 77 70 Pulse Oximetery ] Respiratory Rate Blood Pressure Blood Pressure [Left Arm Supine] Blood Pressure 127/76 129/66 126/79 [Right Arm Supine] Blood Pressure [Right Arm] O2 Sat by Pulse 94 L 96 Oximetry 09/02/20 09/02/20 09/03/20 22:03 22:12 03:49 Temperature 98.4 F Pulse Rate Pulse Rate [ 86 96 72 Pulse Oximetery ] Respiratory 16 Rate Blood Pressure Blood Pressure [Left Arm Supine] Blood Pressure 119/66 118/73 116/77 [Right Arm Supine] Blood Pressure [Right Arm] O2 Sat by Pulse 94 L 97 Oximetry 09/03/20 09/03/20 09/03/20 07:22 07:34 08:00 Temperature 98.1 F Pulse Rate 75 76 Pulse Rate [ 87 Pulse Oximetery ] Respiratory 19 Rate Blood Pressure Blood Pressure [Left Arm Supine] Blood Pressure 106/71 [Right Arm Supine] Blood Pressure [Right Arm] O2 Sat by Pulse 93 L Oximetry 09/03/20 09/03/20 09/03/20 08:07 10:57 11:13 Temperature Pulse Rate 68 70 Pulse Rate [ 87 Pulse Oximetery ] Respiratory 19 Rate Blood Pressure Blood Pressure [Left Arm Supine] Blood Pressure [Right Arm Supine] Blood Pressure [Right Arm] O2 Sat by Pulse Oximetry 09/03/20 09/03/20 09/03/20 13:39 15:13 15:23 Temperature 97.9 F Pulse Rate 68 70 Pulse Rate [ 79 Pulse Oximetery ] Respiratory 17 Rate Blood Pressure Blood Pressure [Left Arm Supine] Blood Pressure 131/80 [Right Arm Supine] Blood Pressure [Right Arm] O2 Sat by Pulse 98 Oximetry 09/03/20 09/03/20 09/03/20 19:21 20:07 20:12 Temperature 98.4 F Pulse Rate 70 Pulse Rate [ 122 H Pulse Oximetery ] Respiratory 18 18 Rate Blood Pressure Blood Pressure [Left Arm Supine] Blood Pressure 101/62 [Right Arm Supine] Blood Pressure [Right Arm] O2 Sat by Pulse 97 Oximetry 09/03/20 09/03/20 09/03/20 20:19 21:47 23:20 Temperature Pulse Rate 71 Pulse Rate [ 104 H 103 H Pulse Oximetery ] Respiratory Rate Blood Pressure Blood Pressure [Left Arm Supine] Blood Pressure 102/68 104/66 [Right Arm Supine] Blood Pressure [Right Arm] O2 Sat by Pulse 96 94 L Oximetry 09/04/20 09/04/20 09/04/20 03:27 07:24 08:10 Temperature 98.4 F 98.6 F Pulse Rate Pulse Rate [ 76 67 67 Pulse Oximetery ] Respiratory 17 17 Rate Blood Pressure Blood Pressure [Left Arm Supine] Blood Pressure 100/64 90/54 [Right Arm Supine] Blood Pressure [Right Arm] O2 Sat by Pulse 94 L 92 L Oximetry 09/04/20 09/04/20 09/04/20 08:25 08:38 11:55 Temperature Pulse Rate 97 93 79 Pulse Rate [ Pulse Oximetery ] Respiratory Rate Blood Pressure Blood Pressure [Left Arm Supine] Blood Pressure [Right Arm Supine] Blood Pressure [Right Arm] O2 Sat by Pulse Oximetry 09/04/20 09/04/20 09/04/20 12:03 13:49 15:10 Temperature 98.7 F 99.1 F Pulse Rate 85 106 H Pulse Rate [ 73 Pulse Oximetery ] Respiratory 16 18 Rate Blood Pressure 90/53 Blood Pressure [Left Arm Supine] Blood Pressure 100/63 [Right Arm Supine] Blood Pressure [Right Arm] O2 Sat by Pulse 93 L 97 Oximetry 09/04/20 09/04/20 09/04/20 15:20 15:50 16:21 Temperature 98.6 F 99.6 F Pulse Rate 109 H 107 H 84 Pulse Rate [ Pulse Oximetery ] Respiratory 16 18 Rate Blood Pressure 92/58 93/59 Blood Pressure [Left Arm Supine] Blood Pressure [Right Arm Supine] Blood Pressure [Right Arm] O2 Sat by Pulse 95 95 Oximetry 09/04/20 09/04/20 09/04/20 16:35 17:10 18:30 Temperature 99.8 F H 99.2 F Pulse Rate 84 108 H 108 H Pulse Rate [ Pulse Oximetery ] Respiratory 18 24 Rate Blood Pressure 108/52 99/66 Blood Pressure [Left Arm Supine] Blood Pressure [Right Arm Supine] Blood Pressure [Right Arm] O2 Sat by Pulse 100 92 L Oximetry 09/04/20 09/04/20 09/04/20 19:35 20:00 22:23 Temperature 99.4 F 99.2 F Pulse Rate 108 H Pulse Rate [ 102 H 102 H Pulse Oximetery ] Respiratory 18 24 24 Rate Blood Pressure 99/66 Blood Pressure [Left Arm Supine] Blood Pressure 97/68 [Right Arm Supine] Blood Pressure [Right Arm] O2 Sat by Pulse 95 92 L Oximetry 09/04/20 09/04/20 09/05/20 22:33 23:02 01:08 Temperature 99.4 F 99.1 F 99.3 F Pulse Rate 108 H 100 105 H Pulse Rate [ Pulse Oximetery ] Respiratory 24 20 20 Rate Blood Pressure 96/62 96/63 94/62 Blood Pressure [Left Arm Supine] Blood Pressure [Right Arm Supine] Blood Pressure [Right Arm] O2 Sat by Pulse 90 L 94 L Oximetry 09/05/20 09/05/20 09/05/20 06:01 07:46 08:03 Temperature 98.4 F Pulse Rate 87 Pulse Rate [ 102 H 94 Pulse Oximetery ] Respiratory 20 18 Rate Blood Pressure Blood Pressure [Left Arm Supine] Blood Pressure 101/65 94/59 [Right Arm Supine] Blood Pressure [Right Arm] O2 Sat by Pulse 94 L Oximetry 09/05/20 09/05/20 09/05/20 08:16 10:42 11:28 Temperature 99.2 F 97.9 F Pulse Rate 85 74 Pulse Rate [ 75 Pulse Oximetery ] Respiratory 17 17 Rate Blood Pressure 102/62 Blood Pressure [Left Arm Supine] Blood Pressure 94/54 [Right Arm Supine] Blood Pressure [Right Arm] O2 Sat by Pulse 100 99 Oximetry 09/05/20 09/05/20 09/05/20 11:38 11:47 12:08 Temperature 98.6 F 97.9 F Pulse Rate 77 93 Pulse Rate [ Pulse Oximetery ] Respiratory 16 17 Rate Blood Pressure 104/70 99/61 Blood Pressure [Left Arm Supine] Blood Pressure [Right Arm Supine] Blood Pressure [Right Arm] O2 Sat by Pulse 98 99 Oximetry 09/05/20 09/05/20 09/05/20 13:58 14:00 14:39 Temperature 98.3 F 98.4 F 97.9 F Pulse Rate 100 93 Pulse Rate [ 79 Pulse Oximetery ] Respiratory 18 18 17 Rate Blood Pressure 125/56 99/60 Blood Pressure [Left Arm Supine] Blood Pressure 101/60 [Right Arm Supine] Blood Pressure [Right Arm] O2 Sat by Pulse 92 L Oximetry 09/05/20 09/05/20 09/05/20 14:49 15:19 15:52 Temperature 99.1 F 99.2 F Pulse Rate 88 72 82 Pulse Rate [ Pulse Oximetery ] Respiratory 16 16 Rate Blood Pressure 101/64 113/64 Blood Pressure [Left Arm Supine] Blood Pressure [Right Arm Supine] Blood Pressure [Right Arm] O2 Sat by Pulse 97 Oximetry 09/05/20 09/05/20 09/05/20 15:55 16:03 16:22 Temperature 99.2 F 98.3 F Pulse Rate 81 82 92 Pulse Rate [ Pulse Oximetery ] Respiratory 17 17 Rate Blood Pressure 109/71 103/64 Blood Pressure [Left Arm Supine] Blood Pressure [Right Arm Supine] Blood Pressure [Right Arm] O2 Sat by Pulse 97 100 Oximetry 09/05/20 09/05/20 09/05/20 16:43 16:52 16:53 Temperature 98.8 F 98.6 F 98.6 F Pulse Rate 91 81 Pulse Rate [ Pulse Oximetery ] Respiratory 16 17 16 Rate Blood Pressure 103/57 106/65 106/65 Blood Pressure [Left Arm Supine] Blood Pressure [Right Arm Supine] Blood Pressure [Right Arm] O2 Sat by Pulse 99 99 99 Oximetry 09/05/20 09/05/20 09/06/20 17:23 20:00 02:00 Temperature 98.0 F 98.1 F 98.2 F Pulse Rate 84 88 Pulse Rate [ 79 75 Pulse Oximetery ] Respiratory 17 16 16 Rate Blood Pressure 113/66 95/60 Blood Pressure [Left Arm Supine] Blood Pressure 89/53 106/66 [Right Arm Supine] Blood Pressure [Right Arm] O2 Sat by Pulse 99 90 L 93 L Oximetry 09/06/20 08:00 Temperature Pulse Rate Pulse Rate [ 75 Pulse Oximetery ] Respiratory 16 Rate Blood Pressure Blood Pressure [Left Arm Supine] Blood Pressure [Right Arm Supine] Blood Pressure [Right Arm] O2 Sat by Pulse Oximetry Procedures: OPERATION: 1. Robotic assisted da Sariah Xi laparoscopic Alla-en-Y gastric bypass, 100 cm antecolic antegastric Alla limb, with 25 mm EEA. 2. Intraoperative esophagogastrojejunoscopy. ANESTHESIA: GETA and local ESTIMATED BLOOD LOSS: 10 mL SPECIMENS REMOVED: None. COMPLICATIONS: NONE. Operative Findings: 1. Biliopancreatic limb 60 cm 2. Bypass performed using 100 cm alla limb secondary to avoid increased tension at 150 cm. 3. Corbin defect and jejunojejunostomy defect closed with 2-0 V LOC 4. Leak test negative with gastrojejunal anastomosis patent and hemostatic. 5. Reinforcement sutures were placed along the gastrojejunal anastomosis 6. Liver within normal limits 7. Bilateral indirect inguinal hernias, small Patient Condition at Discharge: Stable Plan - Discharge Summary Discharge Rx Participant: No New Discharge Prescriptions: New Ondansetron Odt [Zofran Odt] 4 mg PO Q8HR PRN #9 tab PRN Reason: Nausea bisacodyL [Dulcolax] 5 mg PO DAILY PRN #10 tablet.dr PRN Reason: Constipation Simethicone 40 mg/0.6 ml Drops [Mylicon Drops] 40 mg PO PCHS PRN #30 ml PRN Reason: Gas Omeprazole [PriLOSEC] 40 mg PO DAILY #30 capsule.dr Acetaminophen Oral Susp [Tylenol Oral Susp] 500 mg PO Q4-6H PRN #400 ml PRN Reason: Pain Continue Venlafaxine HCl [Effexor] 37.5 mg PO QAM buPROPion HCL [Wellbutrin SR] 150 mg PO QAM Tamsulosin [Flomax] 0.4 mg PO QAM Discontinued Atorvastatin [Lipitor] 80 mg PO HS Cholecalciferol (Vitamin D3) [Vitamin D3] 250 mcg PO DAILY Multivit-Min/FA/Lycopen/Lutein [Centrum Silver Men Tablet] 1 tab PO DAILY Liraglutide [Saxenda] 3 ml SQ DAILY Omeprazole 20 mg PO BID Discharge Medication List Venlafaxine HCl [Effexor] 37.5 mg PO QAM 12/22/14 [History] buPROPion HCL [Wellbutrin SR] 150 mg PO QAM 11/02/19 [History] Tamsulosin [Flomax] 0.4 mg PO QAM 02/19/20 [History] Acetaminophen Oral Susp [Tylenol Oral Susp] 500 mg PO Q4-6H PRN #400 ml 09/06/20 [Rx] Omeprazole [PriLOSEC] 40 mg PO DAILY #30 capsule. 09/06/20 [Rx] Ondansetron Odt [Zofran Odt] 4 mg PO Q8HR PRN #9 tab 09/06/20 [Rx] Simethicone 40 mg/0.6 ml Drops [Mylicon Drops] 40 mg PO PCHS PRN #30 ml 09/06/20 [Rx] bisacodyL [Dulcolax] 5 mg PO DAILY PRN #10 tablet. 09/06/20 [Rx] [facility] [place] [facility] [place] [facility] Activity/Diet/Wound Care/Special Instructions: Liquid diet only for 2 weeks until September 16 No lifting over 4 pounds in 4 weeks, October 03August Shower. No soaking in bath tubs, until September 16 Please notify your surgeon if you develop nausea and vomiting including new onset of abdominal pain. Continue to use incentive spirometry to prevent pneumonias. Please continue to ambulate at home to prevent blood clots in legs. You have new prescriptions at your local pharmacy. Follow-up at the bariatric center. August shower. Dressings to be discontinued by surgeon in the office. Drink 64 oz of fluid daily. Notify bariatric center for temp over 101.0, increased pain, drainage from incisions. No straws or carbonated beverages. Liquid diet only. Sugar content should be less than 6 g to avoid dumping syndr ome. Take MOM for constipation. CRUSH, OPEN, OR CUT TABLETS LARGER THAN A SIZE OF A TIC TAC Discharge Disposition: HOME SELF-CARE
[2020-09-06 15:03] VITALS: BP 137/71; RESP 18; TEMP 97.9
[2020-09-06 15:47] VITALS: PULSE 74
== END 2020-09-06 16:46 | disposition home or self-care (01) | DRG 620 ==
LOC: 2ORMAIN 11:49 → 4SSUR 17:39
PROVIDERS: ADMIT Surgery Plastic and Reconstructive Surgery; ATTEND Surgery Plastic and Reconstructive Surgery
PROC: 0DJ08ZZ Inspection of Upper Intestinal Tract, Via Natural or Artificial Opening Endoscopic (ICD-10-PCS; 2020-09-02)
PROC: 8E0W4CZ Robotic Assisted Procedure of Trunk Region, Percutaneous Endoscopic Approach (ICD-10-PCS; 2020-09-02)
PROC: 0D164ZA Bypass Stomach to Jejunum, Percutaneous Endoscopic Approach (ICD-10-PCS; principal; 2020-09-02 13:40)
DX: E66.01 Morbid (severe) obesity due to excess calories (principal); D62 Acute posthemorrhagic anemia; Z68.39 Body mass index [BMI] 39.0-39.9, adult; F32.9 Major depressive disorder, single episode, unspecified; E78.5 Hyperlipidemia, unspecified; E11.9 Type 2 diabetes mellitus without complications; G47.33 Obstructive sleep apnea (adult) (pediatric); N13.9 Obstructive and reflux uropathy, unspecified; N42.9 Disorder of prostate, unspecified; Z20.822 Contact with and (suspected) exposure to COVID-19; K40.20 Bilateral inguinal hernia, without obstruction or gangrene, not specified as recurrent; D72.829 Elevated white blood cell count, unspecified; T38.0X5A Adverse effect of glucocorticoids and synthetic analogues, initial encounter; K21.9 Gastro-esophageal reflux disease without esophagitis; J44.9 Chronic obstructive pulmonary disease, unspecified; Z87.891 Personal history of nicotine dependence; Z79.899 Other long term (current) drug therapy
CPT/HCPCS: 36410; 36415; 64999; 76937; 80048; 80051; 80053; 82310; 82565; 83735; 84100; 84520; 85025; 85027; 86850; 86900; 86901; 86920; 87635; 94640; 94660

== ENCOUNTER → 2020-09-11 | Outpatient (CLI) | payer BC ==
[2020-09-11 13:36] VITALS: BP 121/81; PULSE 75; RESP 18; TEMP 97.9; BMI 36.4
[2020-09-11 13:42] LABS: HGB 10.3 gm/dL (13.0-17.5); Hypochromasia Slight; MCH 29.5 pg (25.0-35.0); MCHC 32.2 g/dL (31.0-37.0); MCV 91.6 fL (80.0-100.0); Mean Platelet Volume 6.9; Poikilocytosis Slight; RBC 3.49 m/uL (4.30-5.90); RDW 15.6 % (11.5-15.5)
[2020-09-11 13:48] LABS: Platelet Count 346 k/uL (150-450)
--- NOTE | 2020-09-11 14:02 | P.PN ---
Subjective Progress Note Date: 09/11/20 He comes in with history of bleeding and is now better. He is on protein shakes. He has lost much weight. Blood work reviewed. Adverse reaction to Lovenox. Plan for heparin for future surgeries. He feels great. Follow up in 1 week. Dressing removed and is doing well. Objective - Vital Signs Vital signs: Vital Signs Temp 97.9 F 09/11/20 13:32 Pulse 75 09/11/20 13:32 Resp 18 09/11/20 13:32 BP 121/81 09/11/20 13:32 Pulse Ox Intake & Output 09/10/20 09/11/20 09/11/20 18:59 06:59 18:59 Weight 101.605 kg - Labs CBC & Chem 7: 09/11/20 13:05 Labs: Abnormal Lab Results - Last 24 Hours (Table) 09/11/20 Range/Units 13:05 RBC 3.49 L (4.30-5.90) m/uL Hgb 10.3 L (13.0-17.5) gm/dL Hct 32.0 L (39.0-53.0) % RDW 15.6 H (11.5-15.5) %
== END ==
LOC: BARWHC3 12:35
PROVIDERS: ATTEND Surgery Plastic and Reconstructive Surgery
DX: E66.01 Morbid (severe) obesity due to excess calories (principal); D64.9 Anemia, unspecified; F32.9 Major depressive disorder, single episode, unspecified; E11.9 Type 2 diabetes mellitus without complications; Z71.3 Dietary counseling and surveillance; Z68.39 Body mass index [BMI] 39.0-39.9, adult; Z79.899 Other long term (current) drug therapy; Z87.891 Personal history of nicotine dependence; Z88.8 Allergy status to other drugs, medicaments and biological substances
CPT/HCPCS: 85027; 97803; 99211

== ENCOUNTER → 2020-09-18 | Outpatient (CLI) | payer BC ==
[2020-09-18 15:25] VITALS: BP 106/69; PULSE 74; RESP 18; TEMP 98.2; BMI 34.2
--- NOTE | 2020-09-18 15:30 | P.PN ---
Subjective Progress Note Date: 09/18/20 DATE OF SERVICE: 09/18/2020 CHIEF COMPLAINT: Status post gastric bypass HISTORY OF PRESENT ILLNESS: Yoel Sales is a 60-year-old male status post gastric bypass 09/02/2020. He is 2 weeks out. He is losing weight. He is using less of his CPAP machine and is better. He is no longer bleeding. He feels great. At height of 5 feet 5.75 inches, his ideal body weight is 149 pounds. His highest weight is 251 pounds, BMI 40.9. He comes in 210 pounds from 224 pounds, 1 week ago. He has lost 13 pounds in 1 week. Lifetime weight loss is 40 pounds. Percent lifetime excess weight loss is 40 %. His body mass index is 34.3. He is 61 pounds overweight. PHYSICAL EXAM: VITAL SIGNS: Height 5 foot 5.75 inches, weight 210 pounds. BMI 34.3 Vital Signs Temp 98.2 F 09/18/20 15:13 Pulse 74 09/18/20 15:13 Resp 18 09/18/20 15:13 BP 106/69 09/18/20 15:13 Pulse Ox GENERAL: Well-developed in no acute distress. HEENT: No scleral icterus. Extraocular movements grossly intact. Hears conversational speech. No nasal drainage. NECK: Supple without lymphadenopathy. CHEST: Nonlabored respirations with equal bilateral excursions. CARDIOVASCULAR: Regular rate and regular rhythm. Distal 2+ pulses. ABDOMEN: Incisions clean dry and intact. MUSCULOSKELETAL: No clubbing, cyanosis. NEURO: No focal or lateralizing signs. Cranial nerves 2 through 12 grossly within normal limits. PSYCH: Appropriate affect. Alert and oriented to person, place and time. SKIN: Good skin turgor. Well perfused. ASSESSMENT: 1. Morbid obesity due to excess calories 2. Body mass index of 40.9, initial to 34.3 3. Depressive disorder 4. Hyperlipidemia 5. Diabetes type II 6. Gastritis 7. Duodenitis 8. Hiatal hernia 9. H. pylori gastritis 10. Elevated liver enzymes 11. Low obstructive prostate uropathy 12. Obstructive sleep apnea 13. Covid vaccination 14. Status post gastric bypass 15. Adverse reaction to Lovenox 16. Anemia PLAN: 1. Recommend blood work after 1 month post op. 2. He feels better. 3. Follow up 1 month Objective - Vital Signs Vital signs: Vital Signs Temp 98.2 F 09/18/20 15:13 Pulse 74 09/18/20 15:13 Resp 18 09/18/20 15:13 BP 106/69 09/18/20 15:13 Pulse Ox Intake & Output 09/17/20 09/18/20 09/18/20 18:59 06:59 18:59 Weight 95.663 kg
== END ==
LOC: BARWHC3 14:47
PROVIDERS: ATTEND Surgery Plastic and Reconstructive Surgery
DX: E66.01 Morbid (severe) obesity due to excess calories (principal); F32.9 Major depressive disorder, single episode, unspecified; E78.5 Hyperlipidemia, unspecified; E11.9 Type 2 diabetes mellitus without complications; K44.9 Diaphragmatic hernia without obstruction or gangrene; K29.70 Gastritis, unspecified, without bleeding; K29.80 Duodenitis without bleeding; B96.81 Helicobacter pylori [H. pylori] as the cause of diseases classified elsewhere; D64.9 Anemia, unspecified; G47.33 Obstructive sleep apnea (adult) (pediatric); N13.8 Other obstructive and reflux uropathy; R94.5 Abnormal results of liver function studies; T45.515A Adverse effect of anticoagulants, initial encounter; Z68.34 Body mass index [BMI] 34.0-34.9, adult; Z98.84 Bariatric surgery status; Z87.891 Personal history of nicotine dependence
CPT/HCPCS: 99211

== ENCOUNTER → 2020-10-09 | Outpatient (CLI) | payer BC ==
[2020-10-09 15:17] VITALS: BP 113/77; PULSE 71; RESP 16; TEMP 98.3; BMI 32.6
--- NOTE | 2020-10-09 15:53 | P.PN ---
Subjective Progress Note Date: 10/09/20 DATE OF SERVICE: 10/09/2020 CHIEF COMPLAINT: Status post gastric bypass HISTORY OF PRESENT ILLNESS: Yoel Sales is a 60-year-old male status post gastric bypass 09/02/2020. He feels well. He had food get stuck. Fish got stuck and tuna while he ate. He ate too much. "I eat a fat ej's serving." He had trouble with drinking water. No reports of medications getting stuck. He has more energy. He is 1 month out. At height of 5 feet 5.75 inches, his ideal body weight is 149 pounds. His highest weight is 251 pounds, BMI 40.9. He comes in 200 pounds from 210 pounds, 3 weeks ago. He has lost 10 pounds in 3 weeks. Lifetime weight loss is 50 pounds. Percent lifetime excess weight loss is 49 %. His body mass index is 32.7. He is 51 pounds overweight. PHYSICAL EXAM: VITAL SIGNS: Height 5 foot 5.75 inches, weight 200 pounds. BMI 32.7 Vital Signs Temp 98.3 F 10/09/20 15:14 Pulse 71 10/09/20 15:14 Resp 16 10/09/20 15:14 BP 113/77 10/09/20 15:14 Pulse Ox GENERAL: Well-developed in no acute distress. HEENT: No scleral icterus. Extraocular movements grossly intact. Hears conversational speech. No nasal drainage. NECK: Supple without lymphadenopathy. CHEST: Nonlabored respirations with equal bilateral excursions. CARDIOVASCULAR: Regular rate and regular rhythm. Distal 2+ pulses. ABDOMEN: Incisions granulated. No incisional hernias. MUSCULOSKELETAL: No clubbing, cyanosis. NEURO: No focal or lateralizing signs. Cranial nerves 2 through 12 grossly w ithin normal limits. PSYCH: Appropriate affect. Alert and oriented to person, place and time. SKIN: Good skin turgor. Well perfused. ASSESSMENT: 1. Morbid obesity due to excess calories 2. Body mass index of 40.9, initial to 32.7 3. Depressive disorder 4. Hyperlipidemia 5. Diabetes type II 6. Gastritis 7. Duodenitis 8. Hiatal hernia 9. H. pylori gastritis 10. Elevated liver enzymes 11. Low obstructive prostate uropathy 12. Obstructive sleep apnea 13. Covid vaccination 14. Status post gastric bypass 15. Adverse reaction to Lovenox 16. Anemia 17. Dietary surveillance and counseling PLAN: 1. Dietary modification described including food portions. 2. Recommend labs for 1 month out. Objective - Vital Signs Vital signs: Vital Signs Temp 98.3 F 10/09/20 15:14 Pulse 71 10/09/20 15:14 Resp 16 10/09/20 15:14 BP 113/77 10/09/20 15:14 Pulse Ox Intake & Output 10/08/20 10/09/20 10/09/20 18:59 06:59 18:59 Weight 91.172 kg - Labs CBC & Chem 7: 10/09/20 16:29 10/09/20 16:29
[2020-10-09 17:00] LABS: HCT 39.7 % (39.0-53.0); MCH 30.4 pg (25.0-35.0); MCHC 34.5 g/dL (31.0-37.0); Mean Platelet Volume 6.8; Platelet Count 208 k/uL (150-450); RBC 4.51 m/uL (4.30-5.90); RDW 13.1 % (11.5-15.5); WBC 5.8 k/uL (3.8-10.6)
[2020-10-09 17:01] LABS: HGB 13.7 gm/dL (13.0-17.5)
[2020-10-09 22:41] LABS: Prothrombin Time 10.9 sec (9.9-11.9)
[2020-10-10 01:17] LABS: Chol/HDL Ratio 4.08; LDL Cholesterol,Calculated 96.4 mg/dL (0.0-131.0); Magnesium 1.9 mg/dL (1.5-2.4); Phosphorus 3.2 mg/dL (2.4-5.1); VLDL Calculation 20.6 mg/dL (5.00-40.00)
[2020-10-10 01:30] LABS: Hemoglobin A1C 4.8 % (4.0-6.0)
[2020-10-10 01:42] LABS: % Iron Saturation 13.15 (15.00-50.00); African American GFR (CKD) 107.2 (60.0-200.0); Albumin 4.6 g/dL (3.80-4.90); Anion Gap 9.4 mmol/L (4.00-12.00); BUN/Creat Ratio 23.33 Ratio (12.00-20.00); Calcium 9.7 mg/dL (8.7-10.3); Carbon Dioxide 25.6 mmol/L (21.6-31.8); Globulin 2.3 g/dL (1.6-3.3); Non-African American GFR(CKD) 92.5 (60.0-200.0); Potassium 3.6 mmol/L (3.5-5.5); Total Bilirubin 0.5 mg/dL (0.3-1.2); Total Protein 6.9 g/dL (6.2-8.2)
[2020-10-10 01:49] LABS: Ferritin 66.3 ng/mL (22.0-322.0)
[2020-10-10 02:04] LABS: Folate, Serum 13.2 ng/mL
[2020-10-10 14:12] LABS: Zinc, Serum 74 ug/dL (60-130)
[2020-10-11 06:49] LABS: Vitamin A 54 ug/dL (38-106)
[2020-10-11 06:51] LABS: Vit B1(Thiamine) 50 ug/L (38-122)
[2020-10-14 19:19] LABS: Selenium 102 mcg/L (63-160)
== END ==
LOC: BARWHC3 15:04
PROVIDERS: ATTEND Surgery Plastic and Reconstructive Surgery
DX: E66.01 Morbid (severe) obesity due to excess calories (principal); D64.9 Anemia, unspecified; E11.9 Type 2 diabetes mellitus without complications; E78.5 Hyperlipidemia, unspecified; F32.9 Major depressive disorder, single episode, unspecified; B96.81 Helicobacter pylori [H. pylori] as the cause of diseases classified elsewhere; K29.80 Duodenitis without bleeding; K29.70 Gastritis, unspecified, without bleeding; K44.9 Diaphragmatic hernia without obstruction or gangrene; G47.33 Obstructive sleep apnea (adult) (pediatric); T45.515A Adverse effect of anticoagulants, initial encounter; R94.5 Abnormal results of liver function studies; N13.8 Other obstructive and reflux uropathy; Z87.891 Personal history of nicotine dependence; Z68.32 Body mass index [BMI] 32.0-32.9, adult; Z71.3 Dietary counseling and surveillance; Z98.84 Bariatric surgery status
CPT/HCPCS: 80053; 80061; 82306; 82525; 82607; 82728; 82746; 83036; 83540; 83550; 83735; 83970; 84100; 84134; 84255; 84425; 84443; 84590; 84630; 85027; 85610; 85730; 97803; 99211

== ENCOUNTER → 2021-04-02 | Outpatient (CLI) | payer BC ==
[2021-04-02 15:21] VITALS: BP 137/88; PULSE 62; RESP 18; TEMP 98; BMI 29.0
--- NOTE | 2021-04-02 15:35 | P.BASOAP ---
Subjective Progress Note Date: 04/02/21 He is no longer in obese category. He has much energy. He has no abdominal. No heartburn. Get labs. Objective - Vital Signs Vital signs: Vital Signs Temp 98.0 F 04/02/21 15:12 Pulse 62 04/02/21 15:12 Resp 18 04/02/21 15:12 BP 137/88 04/02/21 15:12 Pulse Ox Intake & Output 04/01/21 04/02/21 04/02/21 18:59 06:59 18:59 Weight 80.83 kg Assessment/Plan Plan: Date: 04/02/21 Initial Weight: 109.769 kg Initial BMI: 39.3 Current Weight: 80.83 kg Current BMI: 29.0 Type of Surgery: Total Volume in Band: Previous Volume: Volume Removed: Volume Added: Band Size:
== END ==
LOC: BARWHC3 14:11
PROVIDERS: ATTEND Surgery Plastic and Reconstructive Surgery
DX: E66.01 Morbid (severe) obesity due to excess calories (principal); Z71.3 Dietary counseling and surveillance; Z68.29 Body mass index [BMI] 29.0-29.9, adult; Z87.891 Personal history of nicotine dependence; Z88.8 Allergy status to other drugs, medicaments and biological substances
CPT/HCPCS: 99211

== ENCOUNTER → 2021-05-26 | Outpatient (CLI) | payer BC ==
[2021-05-26 12:05] LABS: Partial Thromboplastin Time 25.9 sec (22.0-30.0); Prothrombin Time 10.4 sec (9.0-12.0)
[2021-05-26 14:38] LABS: HCT 46.4 % (39.6-50.0); HGB 15.4 g/dL (13.0-17.0); MCH 29.1 pg (27.0-32.0); MCHC 33.2 g/dL (32.0-37.0); MCV 87.5 fL (80.0-97.0); Mean Platelet Volume 9.2 fL (9.5-12.2); Platelet Count 223 X 10*3/uL (140-440); RDW 12.6 % (11.5-14.5)
[2021-05-26 14:52] LABS: % Iron Saturation 42.33 (15.00-50.00); ALT 29 U/L (10-49); AST 27 U/L (14-35); African American GFR (CKD) 101.6 (60.0-200.0); Albumin 4.7 g/dL (3.8-4.9); Albumin/Globulin Ratio 1.67 (1.60-3.17); Alkaline Phosphatase 131 U/L (41-126); BUN/Creat Ratio 16.58 Ratio (12.00-20.00); Blood Urea Nitrogen 15.6 mg/dL (9.0-27.0); Carbon Dioxide 26.2 mmol/L (20.0-27.5); Chloride 104 mmol/L (96-109); Ferritin 55.9 ng/mL (22.0-322.0); Globulin 2.8 g/dL (1.6-3.3); Glucose 91 mg/dL (70-110); Iron 176 ug/dL (65-175); Magnesium 2.1 mg/dL (1.5-2.4); Non-African American GFR(CKD) 87.7 (60.0-200.0); Potassium 4.2 mmol/L (3.5-5.5); Sodium 139 mmol/L (135-145); Total Iron Binding Capacity 416 ug/dL (228-460); Total Protein 7.6 g/dL (6.2-8.2)
[2021-05-26 15:09] LABS: Chol/HDL Ratio 3.44 Ratio; Prealbumin 31.2 mg/dL (18.0-42.0)
[2021-05-26 15:31] LABS: Folate, Serum >20.00 ng/mL (4.40-31.00)
[2021-05-27 13:15] LABS: Zinc, Serum 93 ug/dL (60-130)
[2021-05-28 06:19] LABS: Vitamin A 73 ug/dL (38-106)
[2021-05-28 06:42] LABS: Vit B1(Thiamine) 84 ug/L (38-122)
== END | disposition home or self-care (01) ==
LOC: LABWHC1 10:47
PROVIDERS: ATTEND Surgery Plastic and Reconstructive Surgery
DX: E66.01 Morbid (severe) obesity due to excess calories (principal); D50.8 Other iron deficiency anemias; E44.0 Moderate protein-calorie malnutrition; E55.9 Vitamin D deficiency, unspecified; K74.1 Hepatic sclerosis; K50.90 Crohn's disease, unspecified, without complications; N19 Unspecified kidney failure; E89.1 Postprocedural hypoinsulinemia
CPT/HCPCS: 36415; 80053; 80061; 82306; 82525; 82607; 82728; 82746; 83540; 83550; 83735; 83970; 84100; 84134; 84255; 84425; 84443; 84590; 84630; 85027; 85610; 85730

== ENCOUNTER → 2021-05-28 | Outpatient (CLI) | payer BC ==
[2021-05-28 16:33] VITALS: BP 143/92; PULSE 77; RESP 16; TEMP 98.5; BMI 28.4
--- NOTE | 2021-05-28 16:51 | P.BASOAP ---
Subjective Progress Note Date: 05/28/21 DATE OF SERVICE: 05/28/2021 CHIEF COMPLAINT: Status post gastric bypass HISTORY OF PRESENT ILLNESS: Yoel Sales is a 60-year-old male status post gastric bypass 09/02/2020. He is 8 months out. He does much running. He does no muscle building exercise. He still takes medication for his mood. He feels great. He is taking multivitamins. At height of 5 feet 5.75 inches, his ideal body weight is 149 pounds. His highest weight is 251 pounds, BMI 40.9. He comes in 175 pounds from 178 pounds, 1 months ago. He has lost 3 pounds in 1 months. Lifetime weight loss is 76 pounds. Percent lifetime excess weight loss is 75 %. His body mass index is 28.5. He is 26 pounds overweight. PHYSICAL EXAM: VITAL SIGNS: Height 5 foot 5.75 inches, weight 175 pounds. BMI 28.5 Vital Signs Temp 98.5 F 05/28/21 16:30 Pulse 77 05/28/21 16:30 Resp 16 05/28/21 16:30 BP 143/92 05/28/21 16:30 Pulse Ox GENERAL: Well-developed in no acute distress. HEENT: No scleral icterus. Extraocular movements grossly intact. Hears conversational speech. No nasal drainage. NECK: Supple without lymphadenopathy. CHEST: Nonlabored respirations with equal bilateral excursions. CARDIOVASCULAR: Regular rate and regular rhythm. Distal 2+ pulses. ABDOMEN: Incisions granulated. No incisional hernias. MUSCULOSKELETAL: No clubbing, cyanosis. NEURO: No focal or lateralizing signs. Cranial nerves 2 through 12 grossly within normal limits. PSYCH: Appropriate affect. Alert and oriented to person, place and time. SKIN: Good skin turgor. Well perfused. LABS: Reviewed. Iron is elevated. ASSESSMENT: 1. Morbid obesity due to excess calories 2. Body mass index of 40.9, initial to 28.5 3. Depressive disorder 4. Hyperlipidemia 5. Diabetes type II 6. Gastritis 7. Duodenitis 8. Hiatal hernia 9. H. pylori gastritis 10. Elevated liver enzymes 11. Low obstructive prostate uropathy 12. Obstructive sleep apnea 13. Covid vaccination 14. Status post gastric bypass 15. Adverse reaction to Lovenox 16. Elevated iron 17. Dietary surveillance and counseling PLAN: 1. He is doing well. 2. Follow up in 12 months post-op Objective - Vital Signs Vital signs: Vital Signs Temp 98.5 F 05/28/21 16:30 Pulse 77 05/28/21 16:30 Resp 16 05/28/21 16:30 BP 143/92 05/28/21 16:30 Pulse Ox Intake & Output 05/27/21 05/28/21 05/28/21 18:59 06:59 18:59 Weight 79.379 kg Assessment/Plan Plan: Date: 05/28/21 Initial Weight: 109.769 kg Initial BMI: 39.3 Current Weight: 79.379 kg Current BMI: 28.4 Type of Surgery: [place]-en-Y Gastric Bypass Total Volume in Band: Previous Volume: Volume Removed: Volume Added: Band Size:
== END ==
LOC: BARWHC3 15:29
PROVIDERS: ATTEND Surgery Plastic and Reconstructive Surgery
DX: E66.01 Morbid (severe) obesity due to excess calories (principal); Z68.28 Body mass index [BMI] 28.0-28.9, adult; F32.A Depression, unspecified; E78.5 Hyperlipidemia, unspecified; E11.9 Type 2 diabetes mellitus without complications; K29.70 Gastritis, unspecified, without bleeding; K29.80 Duodenitis without bleeding; K44.9 Diaphragmatic hernia without obstruction or gangrene; B96.81 Helicobacter pylori [H. pylori] as the cause of diseases classified elsewhere; N13.8 Other obstructive and reflux uropathy; R94.5 Abnormal results of liver function studies; G47.33 Obstructive sleep apnea (adult) (pediatric); Z98.84 Bariatric surgery status; Z71.3 Dietary counseling and surveillance; E83.10 Disorder of iron metabolism, unspecified; Z88.8 Allergy status to other drugs, medicaments and biological substances; Z87.891 Personal history of nicotine dependence
CPT/HCPCS: 99211

== ENCOUNTER → 2022-01-27 | Outpatient (CLI) | payer BC ==
--- NOTE | 2022-01-27 09:37 | US ---
EXAMINATION TYPE: US carotid duplex BILAT DATE OF EXAM: 01/27/2022 COMPARISON: NONE CLINICAL HISTORY: G45.9 TRANSIENT CEREBRAL ISCHEMIC ATTACK. TECHNIQUE: Carotid duplex ultrasound examination. Indirect Doppler criteria was utilized. FINDINGS: EXAM MEASUREMENTS: RIGHT: Peak Systolic Velocity (PSV) cm/sec ----- Right CCA: 84.2 ----- Right ICA: 84.9 ----- Right ECA: 69.4 ICA/CCA ratio: 1.0 RIGHT: End Diastole cm/sec ----- Right CCA: 24.8 ----- Right ICA: 18.9 ----- Right ECA: 11.0 LEFT: Peak Systolic Velocity (PSV) cm/sec ----- Left CCA: 72.9 ----- Left ICA: 75.6 ----- Left ECA: 77.3 ICA/CCA ratio: 1.0 LEFT: End Diastole cm/sec ----- Left CCA: 19.7 ----- Left ICA: 39.8 ----- Left ECA: 11.9 VERTEBRALS (direction of flow): Right Vertebral: Antegrade Left Vertebral: Antegrade Rhythm: Normal [employer] NOTES: No significant stenosis seen. No elevated velocities. IMPRESSION: No evidence for hemodynamically significant stenosis. Criteria for Assigning % of Stenosis / Diameter reduction (Estimation based on the indirect measurements of the internal carotid artery velocities (ICA PSV). 1. Normal (no stenosis)=ICA PSV < 125 cm/s: ratio < 2.0: ICA EDV<40 cm/s. 2. Less than 50% stenosis=ICA PSV < 125 cm/s: ratio < 2.0: ICA EDV<40 cm/s. 3. 50 to 69% stenosis=ICA PSV of 125 to 230 cm/s: ration 2.0 ? 4.0: ICA EDV 40-100 cm/s. 4. Greater than 70% stenosis to near occlusion= ICA PSV > 230 cm/s: ratio > 4.0: ICA EDV > 100 cm/s. 5. Near occlusion= ICA PSV velocities may be low or undetectable: variable ratio and ICA EDV. 6. Total occlusion=unable to detect flow.
== END | disposition home or self-care (01) ==
LOC: RADUSWWP 08:32
PROVIDERS: ATTEND Family Medicine
DX: G45.9 Transient cerebral ischemic attack, unspecified (principal)
CPT/HCPCS: 93880

== ENCOUNTER 2022-01-28 09:28 | Day surgery (SDC) | payer BC ==
[2022-01-27 10:21] VITALS: BMI 28.2
[~2022-01-28 09:28] MED LIST changes: -ACETAMINOPHEN TAB 500 MG TAB PO PRN; -CHLORHEXIDINE GLUCONATE 15 ML CUP MUCOUS MEM PRN; -DEXAMETHASONE SOD PHOSPHATE 4 MG/ML 1 ML VIAL IV ONE; -ENOXAPARIN 40 MG/0.4 ML SYRINGE SQ PRN; -GABAPENTIN 300 MG CAP PO PRN; +LACTATED RINGERS 1,000 ML IV SCH; -MELOXICAM 7.5 MG TAB PO PRN; -ONDANSETRON 4 MG/2 ML VIAL IVP ONE; -PANTOPRAZOLE 40 MG/10 ML VIAL IVP PRN; -SCOPOLAMINE 1.5MG/72HR PATCH TRANSDERM PRN; -TAMSULOSIN 0.4 MG CAP.ER.24H PO PRN
[2022-01-28 10:10] VITALS: TEMP 96.3
[2022-01-28] MEDS ORDERED: PROPOFOL 10 MG/ML 20 ML VIAL IV ONE (11:01)
--- NOTE | 2022-01-28 11:17 | P.PCN ---
Date of Procedure: 01/28/22 Procedure(s) Performed: BRIEF HISTORY: Patient is a 61-year-old pleasant white male scheduled for an elective colonoscopy as a part of screening for colorectal neoplasia PROCEDURE PERFORMED: Colonoscopy. PREOPERATIVE DIAGNOSIS: Screening for colon cancer. IV sedation per Anesthesia. PROCEDURE: After informed consent was obtained, the patient, was brought into the endoscopy unit. IV sedation was administered by Anesthesia under continuous monitoring. Digital rectal examination was normal. Initially the Olympus CF-160 flexible video colonoscope was then inserted in the rectum, gradually advanced into the cecum without any difficulty. Careful examination was performed as the scope was gradually being withdrawn. Ileocecal valve and the appendiceal orifice were visualized and appeared normal. Prep was excellent. Mucosa of the cecum, ascending colon, transverse colon, descending colon, sigmoid colon, and rectum appeared normal. Retroflexion was performed in the rectum and grade 2 internal were seen. The patient tolerated the procedure well. IMPRESSION: Normal-appearing colon from rectum to cecum with no evidence of colorectal neoplasia. Small internal hemorrhoids. RECOMMENDATIONS: Findings of this examination were discussed with the patient as well as his family. He was advised to have a repeat screening colonoscopy in 10 years..
[2022-01-28 11:35] VITALS: BP 107/67; PULSE 57; RESP 18
== END 2022-01-28 11:55 ==
LOC: ORWHC2ENDO 09:28
PROVIDERS: ATTEND Internal Medicine Gastroenterology
DX: Z12.11 Encounter for screening for malignant neoplasm of colon (principal); K64.8 Other hemorrhoids; Z91.048 Other nonmedicinal substance allergy status; F12.90 Cannabis use, unspecified, uncomplicated; F32.A Depression, unspecified; Z79.899 Other long term (current) drug therapy
CPT/HCPCS: 45378; J2704

== ENCOUNTER → 2023-02-22 | Outpatient (CLI) | payer BC ==
--- NOTE | 2023-02-22 11:47 | US ---
EXAMINATION TYPE: US carotid duplex BILAT DATE OF EXAM: 02/22/2023 COMPARISON: 01/27/22 CLINICAL INDICATION: Male, 62 years old with history of R09.89 SIGNS INVOLVING THE CIRC AND RESP [facility]; TECHNIQUE: Carotid duplex ultrasound examination. Indirect Doppler criteria was utilized. FINDINGS: EXAM MEASUREMENTS: RIGHT: Peak Systolic Velocity (PSV) cm/sec ----- Right CCA: 64.8 ----- Right ICA: 86.6 ----- Right ECA: 104.0 ICA/CCA ratio: 1.3 RIGHT: End Diastole cm/sec ----- Right CCA: 19.8 ----- Right ICA: 24.1 ----- Right ECA: 25.6 LEFT: Peak Systolic Velocity (PSV) cm/sec ----- Left CCA: 64.8 ----- Left ICA: 82.3 ----- Left ECA: 101.1 ICA/CCA ratio: 1.3 LEFT: End Diastole cm/sec ----- Left CCA: 21.2 ----- Left ICA: 35.7 ----- Left ECA: 22.7 VERTEBRALS (direction of flow): Right Vertebral: Antegrade Left Vertebral: Antegrade Rhythm: Normal IMPRESSION: No evidence for hemodynamically significant stenosis. Criteria for Assigning % of Stenosis / Diameter reduction (Estimation based on the indirect measurements of the internal carotid artery velocities (ICA PSV). 1. Normal (no stenosis)=ICA PSV < 125 cm/s: ratio < 2.0: ICA EDV<40 cm/s. 2. Less than 50% stenosis=ICA PSV < 125 cm/s: ratio < 2.0: ICA EDV<40 cm/s. 3. 50 to 69% stenosis=ICA PSV of 125 to 230 cm/s: ration 2.0 ? 4.0: ICA EDV 40-100 cm/s. 4. Greater than 70% stenosis to near occlusion= ICA PSV > 230 cm/s: ratio > 4.0: ICA EDV > 100 cm/s. 5. Near occlusion= ICA PSV velocities may be low or undetectable: variable ratio and ICA EDV. 6. Total occlusion=unable to detect flow.
== END | disposition home or self-care (01) ==
LOC: RADUSWWP 10:49
PROVIDERS: ATTEND Family Medicine
DX: R09.89 Other specified symptoms and signs involving the circulatory and respiratory systems (principal)
CPT/HCPCS: 93880